=== PATIENT | female | born 1935 | race Caucasian/White ===

== ENCOUNTER 2017-06-08 17:10 | Inpatient (IN) | payer MEDICARE, BC, MEDICAID ==
[2017-06-08] MEDS ORDERED: Sodium Chloride 0.9% 10 ML Syringe FLUSH PRN (17:34)
[2017-06-08] MEDS ORDERED: LORazepam 2 MG/ML MDV IVPUSH ONE (17:38)
--- NOTE | 2017-06-08 17:39 | EDM.PDOC ---
ED HPI GENERAL MEDICAL PROBLEM - General Chief Complaint: Gastrointestinal Problem Stated Complaint: ASPIRATED Time Seen by Provider: 06/08/17 17:20 Source of Information: Reports: Patient History Limitations: Reports: No Limitations - History of Present Illness INITIAL COMMENTS - FREE TEXT/NARRATIVE: 81-year-old female presents for evaluation treatment of impacted food bolus. Patient is a resident [facility]. Reportedly around noon today she was eating a hamburger. She choked and since then she has been unable to swallow her secretions. She states that it feels as if something is stuck in her throat. Tried Mylanta but continued to have discomfort. Also attempted to give tramadol for anxiety. This was crushed. She has since vomited up the Mylanta and the tramadol. Onset: Today, Sudden - Related Data Allergies Allergy/AdvReac Type Severity Reaction Status Date / Time No Known Allergies Allergy Verified 06/08/17 17:40 Home Meds: Home Meds Acetaminophen [Tylenol] 325 mg PO Q4H PRN 06/14/14 [History] Aspirin [Sharita Chewable Aspirin] 81 mg PO DAILY 06/14/14 [History] Atenolol/Chlorthalidone [Atenolol-Chlorthalidone 50-25] 25 mg PO DAILY 06/14/14 [History] B2/Vit A,C & E/Lut/Zeaxanth/Mn [Icaps] 1 tab PO DAILY 06/14/14 [History] Budesonide [Pulmicort] 0.5 mg INH BID 06/14/14 [History] Calcium Carbonate [Tums] 2 tab PO Q4HR PRN 06/14/14 [History] ClonazePAM [KlonoPIN] 0.5 mg PO DAILY 06/14/14 [History] ClonazePAM [KlonoPIN] 1 mg PO BEDTIME 06/14/14 [History] Clopidogrel [Plavix] 75 mg PO DAILY 06/14/14 [History] Cyanocobalamin (Vitamin B12) [Vitamin B12] 1,000 mcg IM ASDIRECTED 06/14/14 [ History] Fenofibrate Nanocrystallized [Tricor] 145 mg PO DAILY 06/14/14 [History] Gabapentin [Neurontin] 100 mg PO BID 06/14/14 [History] Glimepiride [Amaryl] 1 mg PO DAILY 08/28/14 [History] Ibuprofen 400 mg PO TIDPC PRN 06/14/14 [History] Immodium 2 tab PO ASDIRECTED PRN 06/14/14 [History] Isosorbide Mononitrate [Imdur] 60 mg PO DAILY 06/14/14 [History] LORazepam [Ativan] 0.5 mg PO BID PRN 06/14/14 [History] Levothyroxine [Synthroid] 50 mcg PO DAILY 06/14/14 [History] Losartan [Cozaar] 25 mg PO DAILY 06/14/14 [History] Mirabegron [Myrbetriq] 25 mg PO DAILY 06/14/14 [History] Nitroglycerin 0.4 mg SL ASDIRECTED PRN 06/14/14 [History] Omeprazole 40 mg PO DAILY 06/14/14 [History] Oxygen 2 liter INH ASDIRECTED 06/14/14 [History] Polyethylene Glycol 3350 [MiraLAX] 17 gm PO DAILY PRN 06/14/14 [History] Potassium Chloride 20 meq PO BID 06/14/14 [History] Spironolactone [Aldactone] 25 mg PO DAILY 06/14/14 [History] atorvaSTATin [Lipitor] 10 mg PO DAILY 06/14/14 [History] metFORMIN [Glucophage] 500 mg PO BID 06/14/14 [History] traZODone 50 mg PO BEDTIME 06/14/14 [History] Carbamide Peroxide [Debrox 6.5% Otic Soln] 4 drop OT ONCALL 07/25/14 [History] Docusate Sodium 100 mg PO BID PRN 07/25/14 [History] Albuterol/Ipratropium [DuoNeb 3.0-0.5 MG/3 ML] 3 ml QID 11/14/14 [History] LORazepam [Ativan] 0.5 mg PO BID 09/20/15 [History] Paliperidone [Invega] 9 mg PO DAILY 09/20/15 [History] Vagisil Wash 1 appful TOP ASDIRECTED PRN 09/20/15 [History] Social & Family History - Tobacco Use Smoking Status *Q: Never Smoker Years of Tobacco use: 15 Used Tobacco, but Quit: Yes Month Tobacco Last Used: October 2004 Second Hand Smoke Exposure: No - Alcohol Use Days Per Week of Alcohol Use: 0 - Recreational Drug Use Recreational Drug Use: No ED ROS GENERAL - Review of Systems Review Of Systems: See Below HEENT: Reports: Other (reports feeling of something stuck in her throat; reports she cannot swallow her secretions) GI/Abdominal: Reports: Vomiting ED EXAM, GI/ABD - Physical Exam Exam: See Below Exam Limited By: No Limitations General Appearance: Alert, WD/WN, Anxious, Mild Distress Throat/Mouth: Normal Inspection, Normal Lips, No Airway Compromise, Other ( patient is unable to swallow any secretions) Respiratory/Chest: No Respiratory Distress, Lungs Clear, Normal Breath Sounds Cardiovascular: Normal Peripheral Pulses, Regular Rate, Rhythm, No Murmur Neurological: Alert, Normal Cognition Psychiatric: Normal Affect, Normal Mood Skin Exam: Warm, Dry EKG INTERPRETATION EKG Date: 06/08/17 Time: 17:45 Rhythm: NSR Rate (Beats/Min): 88 [place]: Normal P-Wave: Present QRS: Normal ST-T: Normal QT: Normal EKG Interpretation Comments: NSR at 88 bpm. No acute changes. Reviewed by myself and Dr. Cheung. Course - Vital Signs Last Recorded V/S: Last Vital Signs Temp 37.4 C 06/08/17 20:28 Pulse 82 06/08/17 19:59 Resp 20 06/08/17 20:28 BP 163/71 H 06/08/17 20:28 Pulse Ox 100 06/08/17 21:03 - Orders/Labs/Meds Orders: Active Orders 24 hr Category Date Time Status Patient Status [ADT] Routine ADT 06/08/17 19:41 Active Ambulate [RC] ASDIRECTED Care 06/08/17 19:41 Active Blood Glucose Check, Bedside [RC] BIDMEALS Care 06/08/17 19:41 Active Cardiac Monitoring [RC] . DIRECTED Care 06/08/17 19:41 Active Diabetes Education [RC] Click To Edit Care 06/08/17 19:45 Active EKG Documentation Completion [RC] STAT Care 06/08/17 17:34 Active Head of Bed Elevation [RC] CONTINUOUS Care 06/08/17 19:43 Active May Shower [RC] ASDIRECTED Care 06/08/17 19:41 Active Oxygen Therapy [RC] PRN Care 06/08/17 19:41 Active Peripheral IV Care [RC] . DIRECTED Care 06/08/17 17:34 Active Pulse Oximetry [RC] CONTINUOUS Care 06/08/17 19:44 Active RT Incentive Spirometry [RC] ASDIRECTED Care 06/08/17 19:41 Active Up ad Porsche [RC] ASDIRECTED Care 06/08/17 19:41 Active Up to Chair [RC] ASDIRECTED Care 06/08/17 19:41 Active Vital Signs [RC] PER UNIT ROUTINE Care 06/08/17 19:41 Active Clear Liquid Diet [DIET] Diet 06/09/17 Breakfast Active Chest 1V Frontal [CR] Stat Exams 06/08/17 17:34 Taken Ondansetron [Zofran] Med 06/08/17 19:41 Active 4 mg IVPUSH Q6H PRN Pantoprazole [ProTONIX IV] Med 06/08/17 20:00 Active 40 mg IVPUSH DAILY@2000 Sodium Chloride 0.9% [Normal Saline] 1,000 ml Med 06/08/17 19:45 Active IV ASDIRECTED Sodium Chloride 0.9% [Saline Flush] Med 06/08/17 17:34 Active 10 ml FLUSH ASDIRECTED PRN Glucose Management Sub Q Reflex [OM.PC] Routine Oth 06/08/17 19:44 Ordered Peripheral IV Insertion Adult [OM.PC] Routine Oth 06/08/17 17:34 Ordered Resuscitation Status Routine Resus Stat 06/08/17 19:41 Ordered Medication Orders Acetaminophen (Tylenol) 325 mg PO Q4H PRN PRN Reason: Pain Last Admin: 06/08/17 21:40 Dose: 325 mg Albuterol/Ipratropium (Duoneb 3.0-0.5 Mg/3 Ml) 3 ml NEB QIDRT [facility] Last Admin: 06/08/17 21:01 Dose: 3 ml Aspirin (Aspirin) 81 mg PO DAILY [facility] Budesonide (Pulmicort) 0.5 mg INH BIDRT [facility] Last Admin: 06/08/17 21:02 Dose: 0.5 mg Clonazepam (Klonopin) 1 mg PO BEDTIME [facility] Clopidogrel Bisulfate (Plavix) 75 mg PO DAILY [facility] Fenofibrate (Tricor) 145 mg PO DAILY [facility] Gabapentin (Neurontin) 100 mg PO BID [facility] Last Admin: 06/08/17 21:24 Dose: 100 mg Glimepiride (Amaryl) 1 mg PO DAILY@0700 [facility] Sodium Chloride (Normal Saline) 1,000 mls @ 40 mls/hr IV ASDIRECTED [facility] Last Admin: 06/08/17 22:05 Dose: 40 mls/hr Isosorbide Mononitrate (Imdur) 60 mg PO DAILY [facility] Levothyroxine Sodium (Synthroid) 50 mcg PO ACBREAKFAST [facility] Lorazepam (Ativan) 0.5 mg PO BID PRN PRN Reason: unknown Last Admin: 06/08/17 22:04 Dose: 0.5 mg Lorazepam (Ativan) 0.5 mg PO BID [facility] Losartan Potassium (Cozaar) 25 mg PO DAILY [facility] Metformin HCl (Glucophage) 500 mg PO BIDMEALS [facility] Nitroglycerin (Nitrostat) 0.4 mg SL ASDIRECTED PRN PRN Reason: Chest Pain Non-Formulary Medication (Clonazepam [Klonopin]) 0.5 mg PO DAILY [facility] Non-Formulary Medication (Mirabegron) 25 mg PO DAILY [facility] Non-Formulary Medication (Paliperidone [Invega]) 9 mg PO DAILY [facility] Non-Formulary Medication (Atenolol/Chlorthalidone 50/25) 1 tab PO DAILY [facility] Ondansetron HCl (Zofran) 4 mg IVPUSH Q6H PRN PRN Reason: Nausea/Vomiting Pantoprazole Sodium (Protonix Iv) 40 mg IVPUSH DAILY@1999 [facility] Last Admin: 06/08/17 21:24 Dose: 40 mg Potassium Chloride (Klor-Con M20) 20 meq PO BIDMEALS [facility] Last Admin: 06/08/17 21:24 Dose: 20 meq Sodium Chloride (Saline Flush) 10 ml FLUSH ASDIRECTED PRN PRN Reason: Keep Vein Open Spironolactone (Aldactone) 25 mg PO DAILY [facility] Trazodone HCl (Trazodone) 50 mg PO BEDTIME [facility] Last Admin: 06/08/17 21:24 Dose: 50 mg Labs: Laboratory Tests 06/08/17 06/08/17 06/08/17 Range/Units 17:30 17:30 17:30 WBC 7.44 (3.98-10.04) K/mm3 RBC 4.04 (3.98-5.22) M/mm3 Hgb 11.2 (11.2-15.7) gm/L Hct 35.7 (34.1-44.9) % MCV 88.4 (79.4-94.8) fl MCH 27.7 (25.6-32.2) pg MCHC 31.4 L (32.2-35.5) g/dl RDW Std Deviation 48.7 H (36.4-46.3) fL Plt Count 140 L (182-369) K/mm3 MPV 11.2 (9.4-12.3) fl Neut % (Auto) 72.5 H (34.0-71.1) % Lymph % (Auto) 16.9 L (19.3-51.7) % [place] % (Auto) 9.3 (4.7-12.5) % Eos % (Auto) 0.9 (0.7-5.8) Baso % (Auto) 0.1 (0.1-1.2) % Neut # (Auto) 5.39 (1.56-6.13) K/mm3 Lymph # (Auto) 1.26 (1.18-3.74) K/mm3 [place] # (Auto) 0.69 H (0.24-0.36) K/mm3 Eos # (Auto) 0.07 (0.04-0.36) K/mm3 Baso # (Auto) 0.01 (0.01-0.08) K/mm3 PT 10.9 (8.0-13.0) SECONDS INR 1.00 APTT 27 (22-36) SECONDS Sodium 140 (136-145) mEq/L Potassium 4.0 (3.5-5.1) mEq/L Chloride 102 (98-107) mEq/L Carbon Dioxide 30 (21-32) mEq/L Anion Gap 12.0 (5-15) BUN 17 (7-18) mg/dL Creatinine 1.0 (0.55-1.02) mg/dL Est Cr Clr Drug Dosing 43.63 mL/min Estimated GFR (MDRD) 53 (>60) mL/min BUN/Creatinine Ratio 17.0 (14-18) Glucose 105 (83-115) mg/dL Calcium 10.1 (8.5-10.1) mg/dL Total Bilirubin 0.5 (0.2-1.0) mg/dL AST 19 (15-37) U/L ALT 17 (14-59) U/L Alkaline Phosphatase 36 L (46-116) U/L Total Protein 7.5 (6.4-8.2) g/dl Albumin 4.1 (3.4-5.0) g/dl Globulin 3.4 gm/dL Albumin/Globulin Ratio 1.2 (1-2) Meds: Medications Generic Name Dose Route Start Last Admin Trade Name Freq PRN Reason Stop Dose Admin Acetaminophen 325 mg 06/08/17 19:46 06/08/17 21:40 Tylenol PO 325 mg Q4H PRN Administration Pain Albuterol/Ipratropium 3 ml 06/08/17 21:00 06/08/17 21:01 Duoneb 3.0-0.5 Mg/3 Ml NEB 3 ml QIDRT KATHLEEN Administration Aspirin 81 mg 06/09/17 09:00 Aspirin PO DAILY [facility] Budesonide 0.5 mg 06/08/17 21:00 06/08/17 21:02 Pulmicort INH 0.5 mg BIDRT KATHLEEN Administration Clonazepam 1 mg 06/08/17 21:00 Klonopin PO BEDTIME KATHLEEN Clopidogrel Bisulfate 75 mg 06/09/17 09:00 Plavix PO DAILY [facility] Fenofibrate 145 mg 06/09/17 09:00 Tricor PO DAILY [facility] Gabapentin 100 mg 06/08/17 21:00 06/08/17 21:24 Neurontin PO 100 mg BID KATHLEEN Administration Glimepiride 1 mg 06/09/17 07:00 Amaryl PO DAILY@0700 [facility] Sodium Chloride 1,000 mls @ 40 mls/hr 06/08/17 19:45 06/08/17 22:05 Normal Saline IV 40 mls/hr ASDIRECTED KATHLEEN Administration Isosorbide Mononitrate 60 mg 06/09/17 09:00 Imdur PO DAILY [facility] Levothyroxine Sodium 50 mcg 06/09/17 06:00 Synthroid PO ACBREAKFAST [facility] Lorazepam 0.5 mg 06/08/17 19:46 06/08/17 22:04 Ativan PO 0.5 mg BID PRN Administration unknown Lorazepam 0.5 mg 06/08/17 21:00 Ativan PO BID [facility] Losartan Potassium 25 mg 06/09/17 09:00 Cozaar PO DAILY [facility] Metformin HCl 500 mg 06/09/17 07:00 Glucophage PO BIDMEALS [facility] Nitroglycerin 0.4 mg 06/08/17 19:46 Nitrostat SL ASDIRECTED PRN Chest Pain Non-Formulary Medication 0.5 mg 06/09/17 09:00 Clonazepam [Klonopin] PO DAILY [facility] Non-Formulary Medication 25 mg 06/09/17 09:00 Mirabegron PO DAILY [facility]LEEN Non-Formulary Medication 9 mg 06/09/17 09:00 Paliperidone [Invega] PO DAILY [facility] Non-Formulary Medication 1 tab 06/09/17 09:00 Atenolol/Chlorthalidone 50/25 PO DAILY [facility] Ondansetron HCl 4 mg 06/08/17 19:41 Zofran IVPUSH Q6H PRN Nausea/Vomiting Pantoprazole Sodium 40 mg 06/08/17 20:00 06/08/17 21:24 Protonix Iv IVPUSH 40 mg DAILY@1999 [facility] Administration Potassium Chloride 20 meq 06/08/17 21:00 06/08/17 21:24 Klor-Con M20 PO 20 meq BIDMEALS [facility] Administration Sodium Chloride 10 ml 06/08/17 17:34 Saline Flush FLUSH ASDIRECTED PRN Keep Vein Open Spironolactone 25 mg 06/09/17 09:00 Aldactone PO DAILY [facility] Trazodone HCl 50 mg 06/08/17 21:00 06/08/17 21:24 Trazodone PO 50 mg BEDTIME [facility] Administration Discontinued Medications Generic Name Dose Route Start Last Admin Trade Name Freq PRN Reason Stop Dose Admin Dexamethasone Confirm 06/08/17 19:55 Dexamethasone Administered 06/08/17 19:56 Dose 12 mg .ROUTE .STK-MED ONE Fentanyl Confirm 06/08/17 18:24 Sublimaze Administered 06/08/17 18:25 Dose 100 mcg .ROUTE .STK-MED ONE Lorazepam 0.5 mg 06/08/17 17:38 06/08/17 19:14 Ativan IVPUSH 06/08/17 17:39 Not Given ONETIME ONE Midazolam HCl Confirm 06/08/17 18:24 Versed 1 Mg/Ml Administered 06/08/17 18:25 Dose 2 mg .ROUTE .STK-MED ONE Non-Formulary Medication 2 liter 06/08/17 20:00 Oxygen INH ASDIRECTED [facility] Propofol Confirm 06/08/17 18:24 Diprivan 20 Ml Administered 06/08/17 18:25 Dose 200 mg .ROUTE .STK-MED ONE - Radiology Interpretation Free Text/Narrative:: chest xray 1 view shows increased hazziness to the right lower lung; formal radiology reading pending. - Re-Assessments/Exams Free Text/Narrative Re-Assessment/Exam: 06/08/17 17:51 Dr. Brandt has presented to the ER to see another patient. I informed him of the impacted food bolus. Plan is to take her to the OR now. We will hold any glucagon and Ativan at this time. I ordered labs, EKG and chest x-ray in preparation for the OR. Departure - Departure Time of Disposition: 18:00 Disposition: Refer to Observation Condition: Fair Clinical Impression: Esophageal obstruction due to food impaction - Discharge Information - My Orders Last 24 Hours: My Active Orders 06/08/17 17:34 EKG Documentation Completion [RC] STAT Peripheral IV Care [RC] . DIRECTED Chest 1V Frontal [CR] Stat Sodium Chloride 0.9% [Saline Flush] 10 ml FLUSH ASDIRECTED PRN Peripheral IV Insertion Adult [OM.PC] Routine - Assessment/Plan Last 24 Hours: My Active Orders 06/08/17 17:34 EKG Documentation Completion [RC] STAT Peripheral IV Care [RC] . DIRECTED Chest 1V Frontal [CR] Stat Sodium Chloride 0.9% [Saline Flush] 10 ml FLUSH ASDIRECTED PRN Peripheral IV Insertion Adult [OM.PC] Routine
[2017-06-08] MEDS ORDERED: Propofol 200 MG/20 ML SDV ONE (18:24)
[2017-06-08] MEDS ORDERED: Midazolam 1 MG/ML 2 ML SDV ONE (18:24)
[2017-06-08] MEDS ORDERED: fentaNYL 100 MCG/2 ML SDV ONE (18:24)
[2017-06-08] MEDS ORDERED: Ondansetron 4 MG/2 ML SDV IVPUSH PRN (19:41)
[2017-06-08] MEDS ORDERED: Sodium Chloride 0.9% 1,000 ML IV SCH (19:45)
[2017-06-08] MEDS ORDERED: LORazepam 1 MG Tab PO PRN (19:46)
[2017-06-08] MEDS ORDERED: Nitroglycerin 0.4 MG Tab.SL SL PRN (19:46)
[2017-06-08] MEDS ORDERED: Acetaminophen 325 MG Tab PO PRN (19:46)
[2017-06-08] MEDS ORDERED: Dexamethasone 4 MG/ML SDV ONE (19:55)
--- NOTE | 2017-06-08 19:56 | PCM.OPNOTE ---
- General Post-Op/Procedure Note Date of Surgery/Procedure: 06/08/17 Operative Procedure(s): Esophagogastroduodenoscopy with esophageal meat disimpaction Findings: Distal esophagus. Food hamburger and bun. No stricture seen. No mass lesions. No chronic endoscopic esophageal changes. The esophagus was somewhat dilated Pre Op Diagnosis: Esophageal meat impaction Post-Op Diagnosis: Same Anesthesia Technique: General ET Tube Primary Surgeon: Reji Brandt Pathology: None EBL in mLs: 0 Complications: None Condition: Good Free Text/Narrative:: After adequate general endotracheal tube anesthesia was obtained with monitoring the patient was kept in the supine position with the head of the bed elevated. A lubricated upper endoscope was inserted into the esophagus and advanced under direct vision. I immediately saw retained saliva and tight meat impacted upon the GE junction. After using the snare to break up the meat and food as well as using the forceps to break up the food along with copious amounts of irrigation I was able to finally enter the stomach. There was food material in the stomach as well. The scope was advanced into the duodenum and there were no inflammatory changes or peptic changes seen in this area. The antrum was unremarkable. In the retroflexed view there was obvious food in the body of the stomach but no hiatal hernia. The scope was then withdrawn to the body of the esophagus where I continued to break up and then irrigate food particulate material into the stomach until the esophagus was completely clear. Photographs were taken throughout the procedure for the patient and for the record. There were no procedural complications.
--- NOTE | 2017-06-08 19:58 | PCM.POSTAN ---
POST ANESTHESIA ASSESSMENT - MENTAL STATUS Mental Status: Alert, Oriented - VITAL SIGNS Pulse Rate: 82 SaO2: 98 Resp Rate: 15 Blood Pressure: 143/76 Temperature: 37.3 C - RESPIRATORY Respiratory Status: Respiratory Rate WNL, Airway Patent, O2 Saturation Stable, Supplemental Oxygen - CARDIOVASCULAR CV Status: Pulse Rate WNL, Blood Pressure Stable - GASTROINTESTINAL GI Status: No Symptoms - PAIN Pain Score: 0 - POST OP HYDRATION Hydration Status: Adequate & Stable
--- NOTE | 2017-06-08 19:59 | PCM.PREANE ---
Preanesthetic Assessment - Anesthesia/Transfusion/Family Hx Anesthesia History: Prior Anesthesia Without Reaction Family History of Anesthesia Reaction: No Transfusion History: No Prior Transfusion(s) - Review of Systems General: Malaise Pulmonary: Shortness of Breath Cardiovascular: No Symptoms Gastrointestinal: Nausea, Vomiting Neurological: Weakness Other: Reports: Diabetes - Physical Assessment NPO Status Date: 06/08/17 NPO Status Time: 12:05 Pulse: 82 O2 Sat by Pulse Oximetry: 98 Respiratory Rate: 15 Blood Pressure: 143/76 Temperature: 37.3 C Vital Signs: Last Vital Signs Temp 37.3 C 06/08/17 19:57 Pulse 82 06/08/17 19:57 Resp 15 06/08/17 19:57 BP 143/76 H 06/08/17 19:57 Pulse Ox 98 06/08/17 19:57 Height: 1.7 m Weight: 74.298 kg ASA Class: 3E Mental Status: Alert & Oriented x3 Airway Class: Mallampati = 2 Dentition: Reports: Dentures Thyro-Mental Finger Breadths: 2 Mouth Opening Finger Breadths: 2 ROM/Head Extension: Limited/Partial Lungs: Clear to Auscultation, Normal Respiratory Effort Cardiovascular: Regular Rate, Regular Rhythm - Lab Values: Laboratory Last Values WBC 7.44 K/mm3 (3.98-10.04) 06/08/17 17:30 RBC 4.04 M/mm3 (3.98-5.22) 06/08/17 17:30 Hgb 11.2 gm/L (11.2-15.7) 06/08/17 17:30 Hct 35.7 % (34.1-44.9) 06/08/17 17:30 MCV 88.4 fl (79.4-94.8) 06/08/17 17:30 MCH 27.7 pg (25.6-32.2) 06/08/17 17:30 MCHC 31.4 g/dl (32.2-35.5) L 06/08/17 17:30 RDW Std Deviation 48.7 fL (36.4-46.3) H 06/08/17 17:30 Plt Count 140 K/mm3 (182-369) L 06/08/17 17:30 MPV 11.2 fl (9.4-12.3) 06/08/17 17:30 Neut % (Auto) 72.5 % (34.0-71.1) H 06/08/17 17:30 Lymph % (Auto) 16.9 % (19.3-51.7) L 06/08/17 17:30 [place] % (Auto) 9.3 % (4.7-12.5) 06/08/17 17:30 Eos % (Auto) 0.9 (0.7-5.8) 06/08/17 17:30 Baso % (Auto) 0.1 % (0.1-1.2) 06/08/17 17:30 Neut # (Auto) 5.39 K/mm3 (1.56-6.13) 06/08/17 17:30 Lymph # (Auto) 1.26 K/mm3 (1.18-3.74) 06/08/17 17:30 [place] # (Auto) 0.69 K/mm3 (0.24-0.36) H 06/08/17 17:30 Eos # (Auto) 0.07 K/mm3 (0.04-0.36) 06/08/17 17:30 Baso # (Auto) 0.01 K/mm3 (0.01-0.08) 06/08/17 17:30 PT 10.9 SECONDS (8.0-13.0) 06/08/17 17:30 INR 1.00 06/08/17 17:30 APTT 27 SECONDS (22-36) 06/08/17 17:30 Sodium 140 mEq/L (136-145) 06/08/17 17:30 Potassium 4.0 mEq/L (3.5-5.1) 06/08/17 17:30 Chloride 102 mEq/L (98-107) 06/08/17 17:30 Carbon Dioxide 30 mEq/L (21-32) 06/08/17 17:30 Anion Gap 12.0 (5-15) 06/08/17 17:30 BUN 17 mg/dL (7-18) 06/08/17 17:30 Creatinine 1.0 mg/dL (0.55-1.02) 06/08/17 17:30 Est Cr Clr Drug Dosing 43.63 mL/min 06/08/17 17:30 Estimated GFR (MDRD) 53 mL/min (>60) 06/08/17 17:30 BUN/Creatinine Ratio 17.0 (14-18) 06/08/17 17:30 Glucose 105 mg/dL (83-115) 06/08/17 17:30 Calcium 10.1 mg/dL (8.5-10.1) 06/08/17 17:30 Total Bilirubin 0.5 mg/dL (0.2-1.0) 06/08/17 17:30 AST 19 U/L (15-37) 06/08/17 17:30 ALT 17 U/L (14-59) 06/08/17 17:30 Alkaline Phosphatase 36 U/L (46-116) L 06/08/17 17:30 Total Protein 7.5 g/dl (6.4-8.2) 06/08/17 17:30 Albumin 4.1 g/dl (3.4-5.0) 06/08/17 17:30 Globulin 3.4 gm/dL 06/08/17 17:30 Albumin/Globulin Ratio 1.2 (1-2) 06/08/17 17:30 - Allergies Allergies/Adverse Reactions: Allergies Allergy/AdvReac Type Severity Reaction Status Date / Time No Known Allergies Allergy Verified 06/08/17 17:40 - Blood Blood Available: No Product(s) Available: None - Anesthesia Plan Pre-Op Medication Ordered: Beta Dusty Beta Dusty: Metoprolol Med Last Dose Date: 06/08/17 Med Last Dose Time: 09:00 - Acknowledgements Anesthesia Type Planned: General Anesthesia Pt an Appropriate Candidate for the Planned Anesthesia: Yes Alternatives and Risks of Anesthesia Discussed w Pt/Guardian: Yes Pt/Guardian Understands and Agrees with Anesthesia Plan: Yes PreAnesthesia Questionnaire HEENT History: Reports: Impaired Vision, Other (See Below) Other HEENT History: wears corrective lenses, dry eye syndrome Cardiovascular History: Reports: CAD, Hypertension, Other (See Below) Respiratory History: Reports: COPD, Other (See Below) Other Respiratory History: chronic O2 use Gastrointestinal History: Reports: Chronic Constipation, GERD Genitourinary History: Reports: Urinary Incontinence ONCOLOGY PHYSICIAN History: Reports: Musculoskeletal History: Reports: Back Pain, Chronic, Osteoarthritis Neurological History: Reports: CVA, Other (See Below) Other Neuro History: unspecified polyneuropathy, dyskinesia, drug induced dyskinesia Psychiatric History: Reports: Anxiety, Dementia, Depression Endocrine/Metabolic History: Reports: Diabetes, Type II Dermatologic History: Reports: Other (See Below) Other Dermatologic History: benign lipomatous neoplasm of skin - Past Surgical History Neurological Surgical History: Reports: None - SUBSTANCE USE Smoking Status *Q: Never Smoker Tobacco Use Within Last Twelve Months: No Second Hand Smoke Exposure: No Days Per Week of Alcohol Use: 0 Recreational Drug Use History: No - HOME MEDS Home Medications: Home Meds Acetaminophen [Tylenol] 325 mg PO Q4H PRN 06/14/14 [History] Aspirin [Sharita Chewable Aspirin] 81 mg PO DAILY 06/14/14 [History] Atenolol/Chlorthalidone [Atenolol-Chlorthalidone 50-25] 25 mg PO DAILY 06/14/14 [History] B2/Vit A,C & E/Lut/Zeaxanth/Mn [Icaps] 1 tab PO DAILY 06/14/14 [History] Budesonide [Pulmicort] 0.5 mg INH BID 06/14/14 [History] Calcium Carbonate [Tums] 2 tab PO Q4HR PRN 06/14/14 [History] ClonazePAM [KlonoPIN] 0.5 mg PO DAILY 06/14/14 [History] ClonazePAM [KlonoPIN] 1 mg PO BEDTIME 06/14/14 [History] Clopidogrel [Plavix] 75 mg PO DAILY 06/14/14 [History] Cyanocobalamin (Vitamin B12) [Vitamin B12] 1,000 mcg IM ASDIRECTED 06/14/14 [ History] Fenofibrate Nanocrystallized [Tricor] 145 mg PO DAILY 06/14/14 [History] Gabapentin [Neurontin] 100 mg PO BID 06/14/14 [History] Glimepiride [Amaryl] 1 mg PO DAILY 06/14/14 [History] Ibuprofen 400 mg PO TIDPC PRN 06/14/14 [History] Immodium 2 tab PO ASDIRECTED PRN 06/14/14 [History] Isosorbide Mononitrate [Imdur] 60 mg PO DAILY 06/14/14 [History] LORazepam [Ativan] 0.5 mg PO BID PRN 06/14/14 [History] Levothyroxine [Synthroid] 50 mcg PO DAILY 06/14/14 [History] Losartan [Cozaar] 25 mg PO DAILY 06/14/14 [History] Mirabegron [Myrbetriq] 25 mg PO DAILY 06/14/14 [History] Nitroglycerin 0.4 mg SL ASDIRECTED PRN 06/14/14 [History] Omeprazole 40 mg PO DAILY 06/14/14 [History] Oxygen 2 liter INH ASDIRECTED 06/14/14 [History] Polyethylene Glycol 3350 [MiraLAX] 17 gm PO DAILY PRN 06/14/14 [History] Potassium Chloride 20 meq PO BID 06/14/14 [History] Spironolactone [Aldactone] 25 mg PO DAILY 06/14/14 [History] atorvaSTATin [Lipitor] 10 mg PO DAILY 06/14/14 [History] metFORMIN [Glucophage] 500 mg PO BID 06/14/14 [History] traZODone 50 mg PO BEDTIME 06/14/14 [History] Carbamide Peroxide [Debrox 6.5% Otic Soln] 4 drop OT ONCALL 07/25/14 [History] Docusate Sodium 100 mg PO BID PRN 07/25/14 [History] Albuterol/Ipratropium [DuoNeb 3.0-0.5 MG/3 ML] 3 ml QID 11/14/14 [History] LORazepam [Ativan] 0.5 mg PO BID 09/20/15 [History] Paliperidone [Invega] 9 mg PO DAILY 09/20/15 [History] Vagisil Wash 09/20/15 [History] - CURRENT (IN HOUSE) MEDS Current Meds: Current Medications Acetaminophen (Tylenol) 325 mg PO Q4H PRN PRN Reason: Pain Albuterol/Ipratropium (Duoneb 3.0-0.5 Mg/3 Ml) 3 ml NEB QID [facility] Aspirin (Aspirin) 81 mg PO DAILY [facility] Budesonide (Pulmicort) 0.5 mg INH BID [facility] Clonazepam (Klonopin) 1 mg PO BEDTIME [facility] Clopidogrel Bisulfate (Plavix) 75 mg PO DAILY [facility] Fenofibrate (Tricor) 145 mg PO DAILY [facility] Gabapentin (Neurontin) 100 mg PO BID [facility] Sodium Chloride (Normal Saline) 1,000 mls @ 40 mls/hr IV ASDIRECTED [facility] Isosorbide Mononitrate (Imdur) 60 mg PO DAILY [facility] Levothyroxine Sodium (Synthroid) 50 mcg PO DAILY [facility] Lorazepam (Ativan) 0.5 mg PO BID PRN PRN Reason: unknown Lorazepam (Ativan) 0.5 mg PO BID [facility] Metformin HCl (Glucophage) 500 mg PO BID [facility] Nitroglycerin (Nitrostat) 0.4 mg SL ASDIRECTED PRN PRN Reason: Chest Pain Non-Formulary Medication (Oxygen) 2 liter INH ASDIRECTED [facility] Non-Formulary Medication (Potassium Chloride [Potassium Chloride]) 20 meq PO BID [facility] Non-Formulary Medication (Atenolol/Chlorthalidone [Atenolol-Chlorthalidone 50-25 ]) 25 mg PO DAILY [facility] Non-Formulary Medication (Clonazepam [Klonopin]) 0.5 mg PO DAILY [facility] Non-Formulary Medication (Glimepiride) 1 mg PO DAILY [facility] Non-Formulary Medication (Losartan) 25 mg PO DAILY [facility] Non-Formulary Medication (Mirabegron) 25 mg PO DAILY [facility] Non-Formulary Medication (Paliperidone [Invega]) 9 mg PO DAILY [facility] Ondansetron HCl (Zofran) 4 mg IVPUSH Q6H PRN PRN Reason: Nausea/Vomiting Pantoprazole Sodium (Protonix Iv) 40 mg IVPUSH DAILY@2000 [facility] Sodium Chloride (Saline Flush) 10 ml FLUSH ASDIRECTED PRN PRN Reason: Keep Vein Open Spironolactone (Aldactone) 25 mg PO DAILY [facility] Trazodone HCl (Trazodone) 50 mg PO BEDTIME [facility] Discontinued Medications Dexamethasone (Dexamethasone) Confirm Administered Dose 12 mg .ROUTE .STK-MED ONE Stop: 06/08/17 19:56 Fentanyl (Sublimaze) Confirm Administered Dose 100 mcg .ROUTE .STK-MED ONE Stop: 06/08/17 18:25 Lorazepam (Ativan) 0.5 mg IVPUSH ONETIME ONE Stop: 06/08/17 17:39 Last Admin: 06/08/17 19:14 Dose: Not Given Midazolam HCl (Versed 1 Mg/Ml) Confirm Administered Dose 2 mg .ROUTE .STK-MED ONE Stop: 06/08/17 18:25 Propofol (Diprivan 20 Ml) Confirm Administered Dose 200 mg .ROUTE .STK-MED ONE Stop: 06/08/17 18:25
[2017-06-08] MEDS ORDERED: OXYGEN INH SCH (20:00)
[2017-06-08] MEDS ORDERED: Pantoprazole 40 MG Vial IVPUSH SCH (20:00)
[2017-06-08] MEDS ORDERED: ClonazePAM 1 MG Tab PO SCH (21:00)
[2017-06-08] MEDS ORDERED: traZODone 50 MG Tab PO SCH (21:00)
[2017-06-08] MEDS: Albuterol/Ipratropium 3.0-0.5 MG/3 ML Neb Soln NEB SCH (21:01)
[2017-06-08] MEDS: Budesonide 0.5 MG/2 ML Neb Susp INH SCH (21:02)
[2017-06-08] MEDS: Gabapentin 100 MG Cap PO SCH (21:24)
[2017-06-08] MEDS: Potassium Chloride 20 MEQ Tab.ER PO SCH (21:24)
[2017-06-09] MEDS ORDERED: Levothyroxine 50 MCG Tab PO SCH (06:00)
[2017-06-09] MEDS: Albuterol/Ipratropium 3.0-0.5 MG/3 ML Neb Soln NEB SCH ×2 (06:31→09:01)
[2017-06-09] MEDS: Budesonide 0.5 MG/2 ML Neb Susp INH SCH (06:31)
[2017-06-09] MEDS ORDERED: metFORMIN 500 MG Tab PO SCH (07:00)
[2017-06-09] MEDS ORDERED: Glimepiride 2 MG Tab PO SCH (07:00)
--- NOTE | 2017-06-09 07:39 | PCM.DCSUM1 ---
Discharge Summary - Hospital Course Free Text/Narrative:: Patient was having respiratory insufficiency secondary to esophageal meat impaction causing distal esophageal obstruction. She was urgently taken to the endoscopy suite for esophagoscopy and meat disimpaction which was successfully performed without complication. The procedure was quite lengthy and because of the trauma to her the distal esophagus and oropharynx I admitted her in the ICU to observe her airway for potential swelling. Overnight she did well tolerating liquids easily. She had no throat discomfort. Her respiratory rate normalized. She satisfied all discharge criteria. Brief History: 6 hours of progressive respiratory insufficiency secondary to esophageal meat obstruction - Discharge Data Discharge Date: 06/09/17 Discharge Disposition: Home, Self-Care 01 Condition: Good - Discharge Diagnosis/Problem(s) (1) Esophageal obstruction due to food impaction SNOMED Code(s): 130274818 ICD Code: K22.2 - ESOPHAGEAL OBSTRUCTION; T18.128A - FOOD IN ESOPHAGUS CAUSING OTHER INJURY, INITIAL ENCOUNTER Status: Resolved Priority: High Current Visit: Yes - Patient Summary/Data Operative Procedure(s) Performed: Esophagogastroduodenoscopy with esophageal meat disimpaction Complications: None Labs Pending at D/C: None Planned Operative Procedure(s) after DC: None Hospital Course: See above. - Patient Instructions Diet: Full Liquid Diet (For 3 days. ), GI Soft/Low Residue/Low Fiber (3 days after a full liquid diet. Then if tolerating all diets then can advance to her regular routine diet.) Activity: As Tolerated, Rest and Relax Today Driving: Do Not Drive Showering/Bathing: May Shower Notify Provider of: Fever, Increased Pain - Discharge Plan Home Medications: Home Meds Immodium 2 tab PO ASDIRECTED PRN 06/14/14 [History] Oxygen 2 liter INH ASDIRECTED 06/14/14 [History] RX: Acetaminophen [Tylenol] 325 mg PO Q4H PRN 06/14/14 [History] RX: Aspirin [Sharita Chewable Aspirin] 81 mg PO DAILY 06/14/14 [History] RX: Atenolol/Chlorthalidone [Atenolol-Chlorthalidone 50-25] 25 mg PO DAILY 06/14 [History] RX: B2/Vit A,C & E/Lut/Zeaxanth/Mn [Icaps] 1 tab PO DAILY 06/14/14 [History] RX: Budesonide [Pulmicort] 0.5 mg INH BID 06/14/14 [History] RX: Calcium Carbonate [Tums] 2 tab PO Q4HR PRN 06/14/14 [History] RX: ClonazePAM [KlonoPIN] 0.5 mg PO DAILY 06/14/14 [History] RX: ClonazePAM [KlonoPIN] 1 mg PO BEDTIME 06/14/14 [History] RX: Clopidogrel [Plavix] 75 mg PO DAILY 06/14/14 [History] RX: Cyanocobalamin (Vitamin B12) [Vitamin B12] 1,000 mcg IM ASDIRECTED 06/14/14 [History] RX: Fenofibrate Nanocrystallized [Tricor] 145 mg PO DAILY 06/14/14 [History] RX: Gabapentin [Neurontin] 100 mg PO BID 06/14/14 [History] RX: Glimepiride [Amaryl] 1 mg PO DAILY 06/14/14 [History] RX: Ibuprofen 400 mg PO TIDPC PRN 06/14/14 [History] RX: Isosorbide Mononitrate [Imdur] 60 mg PO DAILY 06/14/14 [History] RX: LORazepam [Ativan] 0.5 mg PO BID PRN 06/14/14 [History] RX: Levothyroxine [Synthroid] 50 mcg PO DAILY 06/14/14 [History] RX: Losartan [Cozaar] 25 mg PO DAILY 06/14/14 [History] RX: Mirabegron [Myrbetriq] 25 mg PO DAILY 06/14/14 [History] RX: Nitroglycerin 0.4 mg SL ASDIRECTED PRN 06/14/14 [History] RX: Omeprazole 40 mg PO DAILY 06/14/14 [History] RX: Polyethylene Glycol 3350 [MiraLAX] 17 gm PO DAILY PRN 06/14/14 [History] RX: Potassium Chloride 20 meq PO BID 06/14/14 [History] RX: Spironolactone [Aldactone] 25 mg PO DAILY 06/14/14 [History] RX: atorvaSTATin [Lipitor] 10 mg PO DAILY 06/14/14 [History] RX: metFORMIN [Glucophage] 500 mg PO BID 06/14/14 [History] RX: traZODone 50 mg PO BEDTIME 08/28/14 [History] RX: Carbamide Peroxide [Debrox 6.5% Otic Soln] 4 drop OT ONCALL 07/25/14 [ History] RX: Docusate Sodium 100 mg PO BID PRN 07/25/14 [History] RX: Albuterol/Ipratropium [DuoNeb 3.0-0.5 MG/3 ML] 3 ml QID 11/14/14 [History] RX: LORazepam [Ativan] 0.5 mg PO BID 09/20/15 [History] RX: Paliperidone [Invega] 9 mg PO DAILY 09/20/15 [History] Vagisil Wash 1 appful TOP ASDIRECTED PRN 09/20/15 [History] Forms: ED Department Discharge Referrals: Juan Carlos Daniels MD [Primary Care Provider] - - Discharge Summary/Plan Comment DC Time >30 min.: No Discharge Summary/Plan Comment: Clear liquid diet for 3 days followed by a soft diet for 3 days then she can resume her regular diet. - Patient Data Vitals - Most Recent: Last Vital Signs Temp 36.7 C 06/09/17 04:00 Pulse 70 06/09/17 04:00 Resp 24 H 06/09/17 04:00 BP 138/76 06/09/17 04:00 Pulse Ox 97 06/09/17 06:34 Weight - Most Recent: 75.523 kg I&O - Last 24 hours: Intake & Output 06/08/17 06/09/17 06/09/17 22:59 06:59 14:59 Intake Total 100 307 Output Total 275 200 300 Balance -175 107 -300 Lab Results - Last 24 hrs: Laboratory Results - last 24 hr 06/08/17 06/09/17 Range/Units 20:07 00:10 POC Glucose 89 (83-110) mg/dL MRSA (PCR) Positive H Med Orders - Current: Current Medications Acetaminophen (Tylenol) 325 mg PO Q4H PRN PRN Reason: Pain Last Admin: 06/08/17 21:40 Dose: 325 mg Albuterol/Ipratropium (Duoneb 3.0-0.5 Mg/3 Ml) 3 ml NEB QIDRT [facility] Last Admin: 06/09/17 06:31 Dose: 3 ml Aspirin (Aspirin) 81 mg PO DAILY [facility] Budesonide (Pulmicort) 0.5 mg INH BIDRT [facility] Last Admin: 06/09/17 06:31 Dose: 0.5 mg Clonazepam (Klonopin) 1 mg PO BEDTIME [facility] Last Admin: 06/09/17 07:22 Dose: Not Given Clonazepam (Klonopin) 0.5 mg PO DAILY [facility] Clopidogrel Bisulfate (Plavix) 75 mg PO DAILY [facility] Fenofibrate (Tricor) 145 mg PO DAILY [facility] Gabapentin (Neurontin) 100 mg PO BID [facility] Last Admin: 06/08/17 21:24 Dose: 100 mg Glimepiride (Amaryl) 1 mg PO DAILY@0700 [facility] Sodium Chloride (Normal Saline) 1,000 mls @ 40 mls/hr IV ASDIRECTED [facility] Last Admin: 06/08/17 22:05 Dose: 40 mls/hr Isosorbide Mononitrate (Imdur) 60 mg PO DAILY [facility] Levothyroxine Sodium (Synthroid) 50 mcg PO ACBREAKFAST [facility] Last Admin: 06/09/17 07:22 Dose: 50 mcg Lorazepam (Ativan) 0.5 mg PO BID PRN PRN Reason: unknown Last Admin: 06/08/17 22:04 Dose: 0.5 mg Lorazepam (Ativan) 0.5 mg PO BID [facility] Losartan Potassium (Cozaar) 25 mg PO DAILY [facility] Metformin HCl (Glucophage) 500 mg PO BIDMEALS [facility] Nitroglycerin (Nitrostat) 0.4 mg SL ASDIRECTED PRN PRN Reason: Chest Pain Ondansetron HCl (Zofran) 4 mg IVPUSH Q6H PRN PRN Reason: Nausea/Vomiting Pantoprazole Sodium (Protonix Iv) 40 mg IVPUSH DAILY@1999 [facility] Last Admin: 06/08/17 21:24 Dose: 40 mg Mybetriq (Mirabegron (25 Mg)) 0 each PO DAILY [facility] Paliperidone [Invega (] 9 Mg) 0 each PO DAILY [facility] Atenolol/Chlorthalidone 50/25 Tablet 0 each PO DAILY [facility] Potassium Chloride (Klor-Con M20) 20 meq PO BIDMEALS [facility] Last Admin: 06/08/17 21:24 Dose: 20 meq Sodium Chloride (Saline Flush) 10 ml FLUSH ASDIRECTED PRN PRN Reason: Keep Vein Open Spironolactone (Aldactone) 25 mg PO DAILY [facility] Trazodone HCl (Trazodone) 50 mg PO BEDTIME [facility] Last Admin: 06/08/17 21:24 Dose: 50 mg Discontinued Medications Dexamethasone (Dexamethasone) Confirm Administered Dose 12 mg .ROUTE .STK-MED ONE Stop: 06/08/17 19:56 Fentanyl (Sublimaze) Confirm Administered Dose 100 mcg .ROUTE .STK-MED ONE Stop: 06/08/17 18:25 Lorazepam (Ativan) 0.5 mg IVPUSH ONETIME ONE Stop: 06/08/17 17:39 Last Admin: 06/08/17 19:14 Dose: Not Given Midazolam HCl (Versed 1 Mg/Ml) Confirm Administered Dose 2 mg .ROUTE .STK-MED ONE Stop: 06/08/17 18:25 Non-Formulary Medication (Oxygen) 2 liter INH ASDIRECTED [facility] Propofol (Diprivan 20 Ml) Confirm Administered Dose 200 mg .ROUTE .STK-MED ONE Stop: 06/08/17 18:25 *Q Meaningful Use (DIS) - VTE *Q VTE Criteria *Q: - Stroke *Q Stroke Criteria *Q: - AMI *Q AMI Criteria *Q:
[2017-06-09 08:21] VITALS: BP 132/71
[2017-06-09] MEDS: Potassium Chloride 20 MEQ Tab.ER PO SCH (08:38)
[2017-06-09] MEDS: LORazepam 0.5 MG Tab PO SCH ×2 (08:38→08:40)
[2017-06-09] MEDS: Gabapentin 100 MG Cap PO SCH (08:40)
[2017-06-09] MEDS ORDERED: ATENOLOL PO SCH (09:00)
[2017-06-09] MEDS ORDERED: CHLORTHALIDONE PO SCH (09:00)
[2017-06-09] MEDS ORDERED: Atenolol 50 MG Tab PO SCH (09:00)
[2017-06-09] MEDS ORDERED: Aspirin 81 MG Tab.Chew PO SCH (09:00)
[2017-06-09] MEDS ORDERED: MYBETRIQ PO SCH (09:00)
[2017-06-09] MEDS ORDERED: ClonazePAM 0.5 MG Tab PO SCH (09:00)
[2017-06-09] MEDS ORDERED: Losartan 25 MG Tab PO SCH (09:00)
[2017-06-09] MEDS ORDERED: Clopidogrel 75 MG Tab PO SCH (09:00)
[2017-06-09] MEDS ORDERED: Isosorbide Mononitrate 60 MG Tab.ER PO SCH (09:00)
[2017-06-09] MEDS ORDERED: Fenofibrate Nanocrystallized 145 MG Tab PO SCH (09:00)
[2017-06-09] MEDS ORDERED: Spironolactone 25 MG Tab PO SCH (09:00)
[2017-06-09] MEDS ORDERED: PALIPERIDONE 9 MG PO SCH (09:00)
--- NOTE | 2017-06-09 15:10 | CR ---
Chest: Frontal view of the chest was obtained. Comparison: Previous chest x-ray of 06/14/14. Heart size is within normal limits. Tortuous thoracic aorta is seen. Lungs are clear with no acute infiltrates. Bony structures are grossly intact. Impression: 1. Nothing acute is identified on frontal chest x-ray. Diagnostic code #2
--- NOTE | 2017-06-10 17:14 | PCM.SURGPN ---
- General Info Date of Service: 06/09/17 Functional Status: Reports: Pain Controlled, Tolerating Diet, Urinating - Review of Systems General: Reports: No Symptoms HEENT: Reports: No Symptoms Pulmonary: Reports: No Symptoms Gastrointestinal: Reports: No Symptoms - Patient Data Vitals - Most Recent: Last Vital Signs Temp 36.3 C 06/09/17 08:00 Pulse 83 06/09/17 08:00 Resp 20 06/09/17 08:00 BP 132/71 06/09/17 08:38 Pulse Ox 100 06/09/17 09:01 Weight - Most Recent: 75.523 kg Med Orders - Current: Current Medications Discontinued Medications Acetaminophen (Tylenol) 325 mg PO Q4H PRN PRN Reason: Pain Last Admin: 06/08/17 21:40 Dose: 325 mg Albuterol/Ipratropium (Duoneb 3.0-0.5 Mg/3 Ml) 3 ml NEB QIDRT [facility] Last Admin: 06/09/17 09:01 Dose: 3 ml Aspirin (Aspirin) 81 mg PO DAILY [facility] Last Admin: 06/09/17 08:39 Dose: 81 mg Budesonide (Pulmicort) 0.5 mg INH BIDRT [facility] Last Admin: 06/09/17 06:31 Dose: 0.5 mg Clonazepam (Klonopin) 1 mg PO BEDTIME [facility] Last Admin: 06/09/17 07:22 Dose: Not Given Clonazepam (Klonopin) 0.5 mg PO DAILY [facility] Last Admin: 06/09/17 08:39 Dose: 0.5 mg Clopidogrel Bisulfate (Plavix) 75 mg PO DAILY [facility] Last Admin: 06/09/17 08:39 Dose: 75 mg Dexamethasone (Dexamethasone) Confirm Administered Dose 12 mg .ROUTE .STK-MED ONE Stop: 06/08/17 19:56 Fenofibrate (Tricor) 145 mg PO DAILY [facility] Last Admin: 06/09/17 08:39 Dose: 145 mg Fentanyl (Sublimaze) Confirm Administered Dose 100 mcg .ROUTE .STK-MED ONE Stop: 06/08/17 18:25 Gabapentin (Neurontin) 100 mg PO BID [facility] Last Admin: 06/09/17 08:40 Dose: 100 mg Glimepiride (Amaryl) 1 mg PO DAILY@0700 [facility] Last Admin: 06/09/17 08:39 Dose: 1 mg Sodium Chloride (Normal Saline) 1,000 mls @ 40 mls/hr IV ASDIRECTED [facility] Last Admin: 06/08/17 22:05 Dose: 40 mls/hr Isosorbide Mononitrate (Imdur) 60 mg PO DAILY [facility] Last Admin: 06/09/17 08:38 Dose: 60 mg Levothyroxine Sodium (Synthroid) 50 mcg PO ACBREAKFAST [facility] Last Admin: 06/09/17 07:22 Dose: 50 mcg Lorazepam (Ativan) 0.5 mg IVPUSH ONETIME ONE Stop: 06/08/17 17:39 Last Admin: 06/08/17 19:14 Dose: Not Given Lorazepam (Ativan) 0.5 mg PO BID PRN PRN Reason: unknown Last Admin: 06/08/17 22:04 Dose: 0.5 mg Lorazepam (Ativan) 0.5 mg PO BID [facility] Last Admin: 06/09/17 08:40 Dose: 0.5 mg Losartan Potassium (Cozaar) 25 mg PO DAILY [facility] Last Admin: 06/09/17 08:38 Dose: 25 mg Metformin HCl (Glucophage) 500 mg PO BIDMEALS [facility] Last Admin: 06/09/17 08:39 Dose: 500 mg Midazolam HCl (Versed 1 Mg/Ml) Confirm Administered Dose 2 mg .ROUTE .STK-MED ONE Stop: 06/08/17 18:25 Nitroglycerin (Nitrostat) 0.4 mg SL ASDIRECTED PRN PRN Reason: Chest Pain Non-Formulary Medication (Oxygen) 2 liter INH ASDIRECTED [facility] Ondansetron HCl (Zofran) 4 mg IVPUSH Q6H PRN PRN Reason: Nausea/Vomiting Pantoprazole Sodium (Protonix Iv) 40 mg IVPUSH DAILY@1999 [facility] Last Admin: 06/08/17 21:24 Dose: 40 mg Mybetriq (Mirabegron (25 Mg)) 0 each PO DAILY [facility] Paliperidone [Invega (] 9 Mg) 0 each PO DAILY [facility] Atenolol/Chlorthalidone 50/25 Tablet 0 each PO DAILY [facility] Potassium Chloride (Klor-Con M20) 20 meq PO BIDMEALS [facility] Last Admin: 06/09/17 08:38 Dose: 20 meq Propofol (Diprivan 20 Ml) Confirm Administered Dose 200 mg .ROUTE .STK-MED ONE Stop: 06/08/17 18:25 Sodium Chloride (Saline Flush) 10 ml FLUSH ASDIRECTED PRN PRN Reason: Keep Vein Open Spironolactone (Aldactone) 25 mg PO DAILY [facility] Last Admin: 06/09/17 08:38 Dose: 25 mg Trazodone HCl (Trazodone) 50 mg PO BEDTIME [facility] Last Admin: 06/08/17 21:24 Dose: 50 mg - Exam General: Alert, Oriented, Cooperative, No Acute Distress GI/Abdominal Exam: Soft, Non-Tender - Problem List & Annotations (1) Esophageal obstruction due to food impaction SNOMED Code(s): 769278376 Code(s): K22.2 - ESOPHAGEAL OBSTRUCTION; T18.128A - FOOD IN ESOPHAGUS CAUSING OTHER INJURY, INITIAL ENCOUNTER Status: Resolved Priority: High - Problem List Review Problem List Initiated/Reviewed/Updated: Yes - Assessment Assessment (Free Text/Narrative):: Ready for discharge with no sequelae from the precipitating entity and the endoscopic management. I received notification from [facility] physician in regards medical necessity inpatient outpatient services. Dr. Lozoya and I reviewed the patient medical record and I agree with their recommendation of outpatient services. - Plan Plan (Free Text/Narrative):: Discharge today.
== END 2017-06-09 11:01 | disposition home or self-care (01) | DRG 395 ==
LOC: JD.ED 17:10 → JD.SDS 18:03 → JD.ICU 19:42
PROVIDERS: ADMIT Surgery; ATTEND Surgery
PROC: 0DC48ZZ Extirpation of Matter from Esophagogastric Junction, Via Natural or Artificial Opening Endoscopic (ICD-10-PCS; principal; 2017-06-08)
DX: T18.120A Food in esophagus causing compression of trachea, initial encounter (principal); R06.89 Other abnormalities of breathing; Z66 Do not resuscitate; T18.128A Food in esophagus causing other injury, initial encounter; X58.XXXA Exposure to other specified factors, initial encounter; Z79.51 Long term (current) use of inhaled steroids; Z79.02 Long term (current) use of antithrombotics/antiplatelets; Z79.84 Long term (current) use of oral hypoglycemic drugs; Z79.82 Long term (current) use of aspirin; Z99.81 Dependence on supplemental oxygen; Z79.899 Other long term (current) drug therapy; Z87.891 Personal history of nicotine dependence
CPT/HCPCS: 36415; 43247; 71010; 80053; 85025; 85610; 85730; 93005; 99285; J2250; J3010; 00740; 82962; 87641; 94640-76; 94664; A9270-GY; C9113; J1100; J2704; J7040

== ENCOUNTER 2017-11-15 00:29 | Emergency (ER) | payer MEDICARE, BC, MEDICAID ==
[2017-11-15 00:36] VITALS: BP 128/75
--- NOTE | 2017-11-15 00:39 | EDM.PDOC ---
ED HPI GENERAL MEDICAL PROBLEM - General Chief Complaint: ENT Problem Stated Complaint: [facility] Time Seen by Provider: 11/15/17 00:29 Source of Information: Reports: Patient, EMS, [facility] Records History Limitations: Reports: Other (Speech is difficult to understand as she is dysarthric and she does not have her upper dentures in place.) - History of Present Illness INITIAL COMMENTS - FREE TEXT/NARRATIVE: 82-year-old female currently residing in local correction states that she lost her balance and fell face first in the bathroom of her suite. She suffered blunt trauma to her nose zygomatic process on the left side as well as supraorbital ridge on the left side. She was not wearing her glasses of time she fell. She has a mild headache. She has some mild diffuse left-sided neck pain. She appears to blend on both her knees. She apparently could walk after injury. She remembers the accident. No history of loss of consciousness. Of note takes clonazepam 1 mg at bedtime which could make her prone to falling Onset: Today Onset Date: 11/15/17 Onset Time: 00:00 Duration: Minutes: Location: Reports: Head, Face, Neck, Lower Extremity, Left, Lower Extremity, Right (Left knee right knee.) Quality: Reports: Ache (She describes as mild with very little discomfort.) Severity: Mild Improves with: Reports: None Worsens with: Reports: Other (Touching the area.) Context: Reports: Trauma (Tripped and fell in her bathroom at the suite of her correction.), Other. 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 (see below) (None.) - Related Data Allergies Allergy/AdvReac Type Severity Reaction Status Date / Time risperidone [From Risperdal] AdvReac Hallucinati Verified 11/15/17 00:36 ons Home Meds: Home Meds Acetaminophen [Tylenol] 325 mg PO Q4H PRN 06/14/14 [History] Aspirin [Sharita Chewable Aspirin] 81 mg PO DAILY 06/14/14 [History] Atenolol/Chlorthalidone [Atenolol-Chlorthalidone 50-25] 25 mg PO DAILY 06/14/14 [History] B2/Vit A,C & E/Lut/Zeaxanth/Mn [Icaps] 1 tab PO DAILY 06/14/14 [History] Budesonide [Pulmicort] 0.5 mg INH BID 06/14/14 [History] Calcium Carbonate [Tums] 2 tab PO Q4HR PRN 06/14/14 [History] ClonazePAM [KlonoPIN] 0.5 mg PO DAILY 06/14/14 [History] ClonazePAM [KlonoPIN] 1 mg PO BEDTIME 06/14/14 [History] Clopidogrel [Plavix] 75 mg PO DAILY 06/14/14 [History] Cyanocobalamin (Vitamin B12) [Vitamin B12] 1,000 mcg IM ASDIRECTED 06/14/14 [ History] Fenofibrate Nanocrystallized [Tricor] 145 mg PO DAILY 06/14/14 [History] Gabapentin [Neurontin] 100 mg PO BID 06/14/14 [History] Glimepiride [Amaryl] 1 mg PO DAILY 06/14/14 [History] Ibuprofen 400 mg PO TIDPC PRN 06/14/14 [History] Immodium 2 tab PO ASDIRECTED PRN 06/14/14 [History] Isosorbide Mononitrate [Imdur] 60 mg PO DAILY 06/14/14 [History] LORazepam [Ativan] 0.5 mg PO BID PRN 06/14/14 [History] Levothyroxine [Synthroid] 50 mcg PO DAILY 06/14/14 [History] Losartan [Cozaar] 25 mg PO DAILY 06/14/14 [History] Mirabegron [Myrbetriq] 25 mg PO DAILY 06/14/14 [History] Nitroglycerin 0.4 mg SL ASDIRECTED PRN 06/14/14 [History] Omeprazole 40 mg PO DAILY 06/14/14 [History] Oxygen 2 liter INH ASDIRECTED 06/14/14 [History] Polyethylene Glycol 3350 [MiraLAX] 17 gm PO DAILY PRN 06/14/14 [History] Potassium Chloride 20 meq PO BID 06/14/14 [History] Spironolactone [Aldactone] 25 mg PO DAILY 06/14/14 [History] atorvaSTATin [Lipitor] 10 mg PO DAILY 06/14/14 [History] metFORMIN [Glucophage] 500 mg PO BID 06/14/14 [History] traZODone 50 mg PO BEDTIME 06/14/14 [History] Carbamide Peroxide [Debrox 6.5% Otic Soln] 4 drop OT ONCALL 07/25/14 [History] Docusate Sodium 100 mg PO BID PRN 07/25/14 [History] Albuterol/Ipratropium [DuoNeb 3.0-0.5 MG/3 ML] 3 ml QID 11/14/14 [History] LORazepam [Ativan] 0.5 mg PO BID 09/20/15 [History] Paliperidone [Invega] 9 mg PO DAILY 09/20/15 [History] Vagisil Wash 1 appful TOP ASDIRECTED PRN 09/20/15 [History] Past Medical History HEENT History: Reports: Impaired Vision, Other (See Below) Other HEENT History: wears corrective lenses, dry eye syndrome Cardiovascular History: Reports: CAD, Hypertension, Other (See Below) Respiratory History: Reports: COPD, Other (See Below) Other Respiratory History: chronic O2 use Gastrointestinal History: Reports: Chronic Constipation, GERD Genitourinary History: Reports: Urinary Incontinence Other Genitourinary History: overactive bladder 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: Musculoskeletal History: Reports: Back Pain, Chronic, Osteoarthritis Other Musculoskeletal History: generalized weakness, left sided weakness secondary to stroke Neurological History: Reports: CVA, Other (See Below) Other Neuro History: unspecified polyneuropathy, dyskinesia, drug induced dyskinesia Psychiatric History: Reports: Anxiety, Dementia, Depression Endocrine/Metabolic History: Reports: Diabetes, Type II Other Endocrine/Metabolic History: hypomagnesmia, deficiency of vitamin B Hematologic History: Reports: B12 Deficiency, Other (See Below) Other Hematologic History: plavix use Dermatologic History: Reports: Other (See Below) Other Dermatologic History: benign lipomatous neoplasm of skin - Infectious Disease History Infectious Disease History: Reports: Chicken Pox - Past Surgical History Neurological Surgical History: Reports: None Social & Family History - Family History Family Medical History: Noncontributory - Tobacco Use Smoking Status *Q: Never Smoker Years of Tobacco use: 15 Used Tobacco, but Quit: Yes Month Tobacco Last Used: October 2004 Second Hand Smoke Exposure: No - Caffeine Use Caffeine Use: Reports: Coffee - Alcohol Use Days Per Week of Alcohol Use: 0 - Recreational Drug Use Recreational Drug Use: No - Living Situation & Occupation Living situation: Reports: , Extended Care Facility Review of Systems - Review of Systems Review Of Systems: See Below Constitutional: Reports: Weakness. Denies: Chills, Diaphoresis, Fever Eyes: Reports: Other. Denies: Decreased Acuity Ears: Reports: No Symptoms (Does wear eyeglasses.) Nose: Reports: Other (Some pain from the nose She is some mild active bleeding from the left anterior nasal area. ) Mouth/Throat: Reports: Other (She is not wearing her upper plate. Only her lower teeth are present.) Respiratory: Reports: No Symptoms Cardiovascular: Denies: Chest Pain, Edema, Irregular Heart Rate, Syncope GI/Abdominal: Reports: Other (Some problems with constipation.) Genitourinary: Reports: Incontinence (Urge and stress components) Musculoskeletal: Reports: Shoulder Pain, Back Pain, Joint Pain Skin: Reports: No Symptoms (Knees and hips at times.) Neurological: Reports: Headache Psychiatric: Reports: Other (History of hallucinations from medications.) ED EXAM, GENERAL - Physical Exam Exam: See Below Exam Limited By: Other General Appearance: Alert (Vague historian.), WD/WN, No Apparent Distress Eye Exam: Bilateral Eye: Periorbital Changes (Has bruising and swelling of the left supraorbital ridge. Swelling of the infraorbital aspect of her left eye over the zygomatic process as well.), PERRL Ears: Normal TMs Nose: Other (Nose is widened and swollen. Active bleeding from left anterior naris. Minimal bleeding from the right naris. Appears to be a very large nasal polyp on the right side. Unable to visualize the posterior aspect of the left naris. There is no nasal septal hematoma at present.) Throat/Mouth: Normal Inspection, Normal Lips, Normal Teeth (Only has bottom teeth. ), Other (There is slight blood bright red in the left posterior oropharynx.) Head: Other (Mild swelling left frontal cortex of scalp.) Neck: Normal Inspection, Full Range of Motion, Tender Lateral (Tender laterally left side C4-5 level.). No: Limited Range of Motion, Lymphadenopathy (L), Lymphadenopathy (R) Respiratory/Chest: No Respiratory Distress, Lungs Clear, Normal Breath Sounds, Other (No obvious tenderness to her ribs or anterior chest.) Cardiovascular: Normal Peripheral Pulses, Regular Rate, Rhythm, No Edema, No Gallop Peripheral Pulses: 1+: Posterior Tibial (L), Posterior Tibial (R), Dorsalis Pedis (L), Dorsalis Pedis (R) GI/Abdominal: Normal Bowel Sounds, Soft, Non-Tender, No Organomegaly Back Exam: Normal Inspection, Full Range of Motion, Other (There is an old bruise left back just inferior to the scapula that appears to be 3-4 days old. It is about 5 cm in diameter she doesn't know how she contracted this.). No: CVA Tenderness (L), CVA Tenderness (R) Extremities: Other (No obvious injuries to her wrists hands elbows or shoulders. Knees show evidence of mild contusion over the patellas bilaterally. No patellofemoral crepitus and no evidence of fractures clinically. Hips are normal with full range of motion and no pain on external/internal rotation.) Neurological: Alert, Oriented, CN II-XII Intact, Normal Cognition, No Motor/ Sensory Deficits Psychiatric: Flat Affect Skin Exam: Warm, Dry, Intact, Normal Color, Pallor (Slight pallor.) Course - Vital Signs Last Recorded V/S: Last Vital Signs Temp 36.2 C 11/15/17 00:33 Pulse 65 11/15/17 00:33 Resp 16 11/15/17 00:33 BP 128/75 11/15/17 00:33 Pulse Ox 98 11/15/17 00:33 - Orders/Labs/Meds Orders: Active Orders 24 hr Category Date Time Status Cervical Spine wo Cont [CT] Stat Exams 11/15/17 00:35 Taken Head wo Cont [CT] Stat Exams 11/15/17 00:34 Taken Maxillofacial w/o CM [Max Facial Sinus wo Cont] [CT] Exams 11/15/17 00:34 Taken Stat - Radiology Interpretation Free Text/Narrative:: 82-year-old female apparently lost her balance and [facility]. She apparently landed primarily face first with direct blow to her nose and left krishna-face over the zygomatic process and left supraorbital ridge of her eye. Extraocular movements are normal. No palpable facial deformities although clinically I suspect she has fractured her nasal septum. Active bleeding from the left anterior naris. Mild tenderness left cervical spine. Mild contusion to the left forehead. Contusions to both knees but no injuries to the upper extremities identified. No fractures in the lower extremities identified plan CT head neck and maxillofacial bones. - Re-Assessments/Exams Free Text/Narrative Re-Assessment/Exam: 11/15/17 01:04 CT of the cervical spine reveals advanced degenerative changes with complete loss of disc spaces between C3-C4 C4-C5 and C5-C6. There are no fractures identified. CT of the brain reveals advanced degenerative changes with brain shrinkage. Sulci bilaterally. There is no intracranial bleeding or mass effect. Diffuse small vessel ischemic changes present in both basal ganglia. No fractures in the frontal scalp. CT of the maxillofacial bones reveals deviated nasal septum to the left side. No other fractures are identified in the zygomatic processes or superior orbital rim. Mandible is intact as well. 11/15/17 01:35 Vrad agrees with no obvious fractures evident. Severe degenerative brain changes. 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 Plan I'm going to clean up her left naris just make sure there is no persistent active bleeding and cauterize Departure - Departure Time of Disposition: 02:13 Disposition: DC/Tfer to Nursing Home [facility] 64 Condition: Fair Clinical Impression: Fall as cause of accidental injury at home as place of occurrence Qualifiers: Encounter type: initial encounter Qualified Code(s): W19.XXXA - Unspecified fall, initial encounter Contusion of face Qualifiers: Encounter type: initial encounter Qualified Code(s): S00.83XA - Contusion of other part of head, initial encounter Sprain of cervical neck Qualifiers: Encounter type: initial encounter Qualified Code(s): S13.9XXA - Sprain of joints and ligaments of unspecified parts of neck, initial encounter - Discharge Information Forms: ED Department Discharge Additional Instructions: Evaluation the emergency room tonight in regards to a fall in her bathroom at home. Resulted in blunt facial trauma to the nose and left side of your face of particularly tissue and bone around her left eye and cheek bone. CT of the facial bones reveals no broken bones. Eye socket is normal. CT of the brain reveals no bleeding in the brain or skull fractures. Similarly CT of your neck bones shows advanced degenerative arthritis changes but no broken bones. The left nose continued to bleed fairly actively and we cleaned it up and cauterized couple ever areas that were bleeding to bring the bleeding under control. Expect to have much more stiffness and soreness in her neck tomorrow. Similarly knees will likely be a little more sore from the fall as well. May apply ice packs to sore areas for 20 minutes out of every 4 hours today and tomorrow. May use Tylenol as needed for pain relief. - My Orders Last 24 Hours: My Active Orders 11/15/17 00:34 Head wo Cont [CT] Stat Maxillofacial w/o CM [Max Facial Sinus wo Cont] [CT] Stat 11/15/17 00:35 Cervical Spine wo Cont [CT] Stat - Assessment/Plan Last 24 Hours: My Active Orders 11/15/17 00:34 Head wo Cont [CT] Stat Maxillofacial w/o CM [Max Facial Sinus wo Cont] [CT] Stat 11/15/17 00:35 Cervical Spine wo Cont [CT] Stat
--- NOTE | 2017-11-15 07:54 | CT ---
CT cervical spine Technique: Multiple axial sections were obtained from above C1 inferiorly to the bottom of T2. Reconstructed sagittal and coronal images were reviewed. Findings: Degenerative change is noted between the dens and anterior arch of C1. Posterior disc space narrowing is noted at C3-C4 with mild posterior spurring. Other disc spaces are maintained. Minimal spondylolisthesis is noted at C4-C5 compatible with degenerative apophyseal change. Other degenerative apophyseal change is noted throughout the cervical spine most prominent within the mid and upper levels. Scattered endplate osteophytes are seen. Posterior skull base appears intact. Vertebral bodies and posterior arches are intact with no fracture being seen. Mild left-sided neural foraminal stenosis is noted at C3-C4. Other neural foramina are fairly well patent. No bony central canal stenosis is seen. Impression: 1. Degenerative change as noted above. Nothing acute is identified on CT study of the cervical spine. Diagnostic code #2 I agree with preliminary report issued by [facility] ([facility] preliminary report dictated on 11/15/17, 2:31 AM Central Time)
--- NOTE | 2017-11-15 07:54 | CT ---
CT facial bones Technique: Multiple axial sections through the facial bones were obtained. Reconstructed coronal and sagittal images were also obtained. Comparison: No prior facial CT exam. Findings: Mild soft tissue swelling is seen within the left periorbital region and above the left orbital region. Bony structures are osteopenic. Minimal retention cyst is incidentally noted within the inferior left maxillary sinus measuring 1 cm. Nasoseptal deviation is incidentally noted. No acute fracture or other abnormality is seen on CT facial bone study. Impression: 1. Soft tissue swelling within and above the left periorbital region. 2. Other incidental findings. 3. Nothing acute is appreciated on CT study of the facial bones. Diagnostic code #2 I agree with preliminary report issued by [facility] ([facility] preliminary report dictated on 11/15/17, 2:22 AM Central Time)
--- NOTE | 2017-11-15 07:54 | CT ---
Head CT Technique: Multiple axial sections through the brain were obtained. Intravenous contrast was not utilized. Comparison: Previous head CT study of 09/20/15. Findings: Moderate atrophy is seen within the frontal and parietal regions on both sides. Sulci over the convexities are prominent. Ventricles are mildly prominent. Diminished density is noted within the periventricular and subcortical white matter which is compatible with small vessel ischemic demyelination change. No other abnormal parenchymal densities are seen. Atherosclerotic calcification is noted within the vertebral vessels and within the carotid siphon. Bone window settings were reviewed which show no acute calvarial abnormality. Visualized sinuses are clear. Impression: 1. Senescent change with greater cortical atrophy. Findings are similar to prior exam. 2. Other senescent change as noted above. 3. No acute intracranial abnormality is identified. Diagnostic code #2 I agree with preliminary report issued by [employer] ([facility]) ([facility] preliminary report dictated on 11/15/17, 2:28 AM Central Time)
== END 2017-11-15 02:22 ==
LOC: JD.ED 00:29
DX: S13.9XXA Sprain of joints and ligaments of unspecified parts of neck, initial encounter (principal); S00.83XA Contusion of other part of head, initial encounter; I10 Essential (primary) hypertension; E11.42 Type 2 diabetes mellitus with diabetic polyneuropathy; Z79.82 Long term (current) use of aspirin; Z79.899 Other long term (current) drug therapy; Z79.84 Long term (current) use of oral hypoglycemic drugs; W19.XXXA Unspecified fall, initial encounter; Y92.002 Bathroom of unspecified non-institutional (private) residence as the place of occurrence of the external cause
CPT/HCPCS: 70450; 70450-26; 70486; 70486-26; 72125; 72125-26; 99283; 99285-25

== ENCOUNTER 2018-11-09 06:44 | Inpatient (IN) | payer MEDICARE, BC, MEDICAID ==
[2018-11-09] MEDS ORDERED: Sodium Chloride 0.9% 10 ML Syringe FLUSH PRN (06:52)
--- NOTE | 2018-11-09 07:09 | EDM.PDOC ---
<AnishaMatt bourgeois Lary - Last Filed: 11/09/18 07:55> ED HPI GENERAL MEDICAL PROBLEM - General Chief Complaint: Neuro Symptoms/Deficits Stated Complaint: [facility] Time Seen by Provider: 11/09/18 06:51 Source of Information: Reports: Patient, EMS, Family, [facility] Records, RN Notes Reviewed - History of Present Illness INITIAL COMMENTS - FREE TEXT/NARRATIVE: 83-year-old female who's been brought in by [facility] with history of left-sided paralysis, onset sometime during the night. Last known well was about 9 hours ago last evening. At around 9 PM last evening patient did complain to half-way staff that she felt weak on her left side. However when half-way staff did a neuro exam they did not detect a focal weakness. Therefore there was not felt any need for transfer here to the ED last evening. On awakening this morning a short time ago she is completely paralyzed on the left. She has left facial droop and some dysarthria. On arrival to ED she does deny headache and there has been no nausea or vomiting. She does have history of hypertension, prior TIAs. - Related Data Allergies Allergy/AdvReac Type Severity Reaction Status Date / Time risperidone [From Risperdal] AdvReac Hallucinati Verified 11/09/18 06:59 ons Home Meds: Home Meds Acetaminophen [Tylenol] 325 mg PO Q6H PRN 11/09/18 [History] Atenolol 25 mg PO DAILY 11/09/18 [History] Atropine Sulfate In 0.9% NaCl [Atropine 0.01%-Ns Eye Drops] 1 drop SL Q8H PRN [History] Calcium Carbonate [Tums] 200 mg PO Q4H PRN 11/09/18 [History] Carboxymethylcellulose Sodium [Refresh Tears 0.5%] 2 drop EYEBOTH TID 11/09/18 [ History] Chlorhexidine Gluconate [Peridex] 15 ml MM BID 11/09/18 [History] Clopidogrel [Plavix] 75 mg PO DAILY 11/09/18 [History] Cyanocobalamin (Vitamin B-12) [Vitamin B-12] 1,000 mcg PO ASDIRECTED 11/09/18 [ History] Docusate Sodium [Colace] 100 mg PO BID 11/09/18 [History] Donepezil HCl [Aricept] 10 mg PO DAILY 11/09/18 [History] Fenofibrate Nanocrystallized [Tricor] 145 mg PO DAILY 11/09/18 [History] Gabapentin [Neurontin] 200 mg PO BID 11/09/18 [History] Glimepiride [Amaryl] 1 mg PO DAILY 11/09/18 [History] Hydrocortisone [Anusol-HC] 25 mg RECTAL BID PRN 11/09/18 [History] Ibuprofen [Motrin] 200 mg PO Q8H PRN 11/09/18 [History] Isosorbide Mononitrate [Imdur] 30 mg PO DAILY 11/09/18 [History] Levothyroxine [Synthroid] 50 mcg PO DAILY 11/09/18 [History] Loperamide HCl [Imodium A-D] 4 mg PO DAILY PRN 11/09/18 [History] Losartan [Cozaar] 25 mg PO DAILY 11/09/18 [History] Magnesium Oxide 400 mg PO DAILY 11/09/18 [History] Mirabegron [Myrbetriq] 25 mg PO BEDTIME 11/09/18 [History] Nitroglycerin [Nitrostat] 0.4 mg SL DAILY PRN 11/09/18 [History] Ondansetron [Zofran] 4 mg PO Q6H PRN 11/09/18 [History] PARoxetine HCl [Paxil] 40 mg PO DAILY 11/09/18 [History] Pantoprazole Sodium [Protonix] 40 mg PO DAILY 11/09/18 [History] Polyethylene Glycol 3350 [MiraLAX] 17 gm PO DAILY PRN 11/09/18 [History] Potassium Chloride 10 meq PO DAILY 11/09/18 [History] atorvaSTATin [Lipitor] 10 mg PO DAILY 11/09/18 [History] clonazePAM [Clonazepam] 1 mg PO BID 11/09/18 [History] metFORMIN [Glucophage XR] 500 mg PO DAILY 11/09/18 [History] traMADol [Ultram] 50 mg PO BEDTIME 11/09/18 [History] Past Medical History HEENT History: Reports: Impaired Vision, Other (See Below) Other HEENT History: wears corrective lenses, dry eye syndrome Cardiovascular History: Reports: CAD, Hypertension, Other (See Below) Respiratory History: Reports: COPD, Other (See Below) Other Respiratory History: chronic O2 use Gastrointestinal History: Reports: Chronic Constipation, GERD Genitourinary History: Reports: Urinary Incontinence Other Genitourinary History: overactive bladder [employer] History: Reports: Musculoskeletal History: Reports: Back Pain, Chronic, Osteoarthritis Other Musculoskeletal History: generalized weakness, left sided weakness secondary to stroke Neurological History: Reports: CVA, Other (See Below) Other Neuro History: unspecified polyneuropathy, dyskinesia, drug induced dyskinesia Psychiatric History: Reports: Anxiety, Dementia, Depression Endocrine/Metabolic History: Reports: Diabetes, Type II Other Endocrine/Metabolic History: hypomagnesmia, deficiency of vitamin B Hematologic History: Reports: B12 Deficiency, Other (See Below) Other Hematologic History: plavix use Dermatologic History: Reports: Other (See Below) Other Dermatologic History: benign lipomatous neoplasm of skin - Infectious Disease History Infectious Disease History: Reports: Chicken Pox - Past Surgical History Neurological Surgical History: Reports: None Social & Family History - Family History Family Medical History: Noncontributory - Tobacco Use Smoking Status *Q: Never Smoker - Caffeine Use Caffeine Use: Reports: Coffee - Recreational Drug Use Recreational Drug Use: No - Living Situation & Occupation Living situation: Reports: , Extended Care Facility ED ROS GENERAL - Review of Systems Review Of Systems: See Below Constitutional: Denies: Fever HEENT: Denies: Throat Pain Respiratory: Reports: Shortness of Breath (Chronically), Cough Cardiovascular: Denies: Chest Pain (Chronic) GI/Abdominal: Denies: Abdominal Pain, Nausea, Vomiting Skin: Denies: Rash Neurological: Reports: Weakness (Total paralysis left side). Denies: Headache ED EXAM, NEURO - Physical Exam Exam: See Below General Appearance: Alert (Patient is awake, makes good eye contact, obeying commands, attempting to answer questions) Eye Exam: Bilateral Eye: PERRL Ears: Normal External Exam Nose: Normal Inspection Throat/Mouth: Normal Inspection, Normal Oropharynx Head Exam: No: Facial Swelling Neck: Supple, Other Respiratory/Chest: No Respiratory Distress (No JVD), Lungs Clear, Normal Breath Sounds Cardiovascular: Regular Rate, Rhythm GI/Abdominal: Soft, Non-Tender. No: Guarding Neurological: Alert, Other (Complete left-sided paralysis left upper and left lower extremities, left facial droop, speech dysarthria but answers are appropriate) Back Exam: No: CVA Tenderness (L), CVA Tenderness (R) Extremities: No: Pedal Edema Skin Exam: Warm, Dry, Normal Color Course - Vital Signs Last Recorded V/S: Last Vital Signs Temp 36.2 C 11/09/18 06:48 Pulse 80 11/09/18 12:01 Resp 22 H 11/09/18 06:48 BP 185/87 H 11/09/18 12:01 Pulse Ox 100 11/09/18 06:48 - Orders/Labs/Meds Orders: Active Orders 24 hr Category Date Time Status Oxygen Therapy [RC] .PRN Care 11/09/18 06:52 Active Peripheral IV Care [RC] Q2HR Care 11/09/18 06:53 Active Brain wo Cont [MR] Stat Exams 11/09/18 10:42 Taken Sodium Chloride 0.9% [Saline Flush] Med 11/09/18 06:52 Active 10 ml FLUSH ASDIRECTED PRN Peripheral IV Insertion Adult [OM.PC] Stat Oth 11/09/18 06:52 Ordered Medication Orders Acetaminophen (Tylenol) 650 mg PO Q4H PRN PRN Reason: Pain (Mild 1-3)/fever Hydralazine HCl (Apresoline) 10 mg IVPUSH Q6H PRN PRN Reason: Hypertension Dextrose/Sodium Chloride (Dextrose 5%-Normal Saline) 1,000 mls @ 50 mls/hr IV ASDIRECTED KATHLEEN Metoprolol Tartrate (Lopressor) 5 mg IVPUSH Q4H PRN PRN Reason: Tachycardia Ondansetron HCl (Zofran Odt) 4 mg PO Q6H PRN PRN Reason: nausea, able to take PO Ondansetron HCl (Zofran) 4 mg IV Q6H PRN PRN Reason: Nausea/Vomiting Sodium Chloride (Saline Flush) 10 ml FLUSH ASDIRECTED PRN PRN Reason: Keep Vein Open Last Admin: 11/09/18 07:04 Dose: 10 ml Labs: Laboratory Tests 11/09/18 11/09/18 11/09/18 Range/Units 07:05 07:05 07:05 WBC 3.91 L (3.98-10.04) K/mm3 RBC 4.08 (3.98-5.22) M/mm3 Hgb 10.9 L (11.2-15.7) gm/L Hct 37.0 (34.1-44.9) % MCV 90.7 (79.4-94.8) fl MCH 26.7 (25.6-32.2) pg MCHC 29.5 L (32.2-35.5) g/dl RDW Std Deviation 50.8 H (36.4-46.3) fL Plt Count 111 L (182-369) K/mm3 MPV 11.3 (9.4-12.3) fl Neut % (Auto) 64.9 (34.0-71.1) % Lymph % (Auto) 24.6 (19.3-51.7) % [place] % (Auto) 8.2 (4.7-12.5) % Eos % (Auto) 1.3 (0.7-5.8) Baso % (Auto) 0.5 (0.1-1.2) % Neut # (Auto) 2.54 (1.56-6.13) K/mm3 Lymph # (Auto) 0.96 L (1.18-3.74) K/mm3 [place] # (Auto) 0.32 (0.24-0.36) K/mm3 Eos # (Auto) 0.05 (0.04-0.36) K/mm3 Baso # (Auto) 0.02 (0.01-0.08) K/mm3 Manual Slide Review Abnormal smear PT 11.4 (9.5-12.1) SECONDS INR 1.05 Sodium 144 (136-145) mEq/L Potassium 3.9 (3.5-5.1) mEq/L Chloride 105 (98-107) mEq/L Carbon Dioxide 32 (21-32) mEq/L Anion Gap 10.9 (5-15) BUN 18 (7-18) mg/dL Creatinine 0.9 (0.55-1.02) mg/dL Est Cr Clr Drug Dosing TNP Estimated GFR (MDRD) 60 (>60) mL/min BUN/Creatinine Ratio 20.0 H (14-18) Glucose 87 (83-115) mg/dL Calcium 9.3 (8.5-10.1) mg/dL Total Bilirubin 0.4 (0.2-1.0) mg/dL AST 20 (15-37) U/L ALT 18 (14-59) U/L Alkaline Phosphatase 37 L (46-116) U/L Total Protein 7.2 (6.4-8.2) g/dl Albumin 3.6 (3.4-5.0) g/dl Globulin 3.6 gm/dL Albumin/Globulin Ratio 1.0 (1-2) Meds: Medications Generic Name Dose Route Start Last Admin Trade Name Freq PRN Reason Stop Dose Admin Acetaminophen 650 mg 11/09/18 12:36 Tylenol PO Q4H PRN Pain (Mild 1-3)/fever Hydralazine HCl 10 mg 11/09/18 12:39 Apresoline IVPUSH Q6H PRN Hypertension Dextrose/Sodium Chloride 1,000 mls @ 50 mls/hr 11/09/18 12:45 Dextrose 5%-Normal Saline IV ASDIRECTED KATHLEEN Metoprolol Tartrate 5 mg 11/09/18 12:39 Lopressor IVPUSH Q4H PRN Tachycardia Ondansetron HCl 4 mg 11/09/18 12:36 Zofran Odt PO Q6H PRN nausea, able to take PO Ondansetron HCl 4 mg 11/09/18 12:36 Zofran IV Q6H PRN Nausea/Vomiting Sodium Chloride 10 ml 11/09/18 06:52 11/09/18 07:04 Saline Flush FLUSH 10 ml ASDIRECTED PRN Administration Keep Vein Open Discontinued Medications Generic Name Dose Route Start Last Admin Trade Name Freq PRN Reason Stop Dose Admin Metoprolol Tartrate 5 mg 11/09/18 11:53 11/09/18 12:01 Lopressor IVPUSH 11/09/18 11:54 5 mg ONETIME ONE Administration - Re-Assessments/Exams Free Text/Narrative Re-Assessment/Exam: 11/09/18 07:22. Patient arrived just before change of shift. CT does not show hemorrhage, no obvious infarct, awaiting labs and Radiologist report. Have visited with daughter, Marion who lives here in town. She is DNR, DNI, would like to have patient admitted and treated here at this hospital if possible. Transferring care to Dr Flood at this time. Departure - Departure Disposition: Admitted As Inpatient 67 Clinical Impression: Stroke - Discharge Information <Swapnil Flood - Last Filed: 11/09/18 14:07> EKG INTERPRETATION EKG Date: 11/09/18 Time: 07:15 Rhythm: NSR (One PVC) Rate (Beats/Min): 75 [place]: Normal P-Wave: Present QRS: Normal ST-T: Normal QT: Normal Comparison: No Change (06/08/2017) Course - Re-Assessments/Exams Free Text/Narrative Re-Assessment/Exam: 11/09/18 08:08 CT of the head without contrast is read by Dr. Wyatt as: 1. Senescent change which is moderate in severity. Findings are fairly stable from previous exam. Nothing acute is identified at this time. Please correlate if MRI is needed to further evaluate patient's symptoms. Care assumed from Dr. Lancaster. I have evaluated the patient, and discussed her case with both her daughter and son, who are at her bedside. All are agreeable to admitting the patient for physical therapy evaluation, to see what her physical requirements will be before she returns to the [facility]. I will contact the Hospitalist. 11/09/18 08:[address] Giang at 08:15. Because of the patient's code status, and her negative outlook of the future, Dr. Giang would like to have a renal case manager evaluate the patient first, before she accepts. She will let me know her decision. 11/09/18 11:22 I have not heard back from Dr. Giang, however, I am informed that the patient is currently undergoing a MRI, ordered by Dr. Giang, therefore it appears that the patient has been accepted for admission. Departure - Departure Time of Disposition: 11:23 Condition: Fair - Discharge Information *PRESCRIPTION DRUG MONITORING PROGRAM REVIEWED*: Not Applicable *COPY OF PRESCRIPTION DRUG MONITORING REPORT IN PATIENT PHILIP: Not Applicable
--- NOTE | 2018-11-09 07:16 | CT ---
Head CT Technique: Multiple axial sections through the brain were obtained. Intravenous contrast was not utilized. Comparison: Prior head CT exam of 11/15/17. Findings: Ventricles along with basal cisterns and sulci over the convexities are moderately prominent. Diminished density is noted within the periventricular and subcortical white matter compatible with small vessel ischemic demyelination change. No other abnormal parenchymal densities are seen. No evidence of intracranial hemorrhage. No midline shift or mass effect is seen. Atherosclerotic calcification is noted within the carotid siphon. Bone window settings were reviewed which shows no acute calvarial abnormality. Visualized sinuses are clear. Impression: 1. Senescent change which is moderate in severity. Findings are fairly stable from previous exam. Nothing acute is identified at this time. Please correlate if MRI is needed to further evaluate patient's symptoms. Diagnostic code #2
[2018-11-09] MEDS ORDERED: Metoprolol Tartrate 5 MG/5 ML SDV IVPUSH ONE (11:53)
[2018-11-09] MEDS ORDERED: Ondansetron 4 MG/2 ML SDV IV PRN (12:36)
[2018-11-09] MEDS ORDERED: Ondansetron 4 MG Tab.DIS PO PRN (12:36)
[2018-11-09] MEDS ORDERED: hydrALAZINE 20 MG/ML SDV IVPUSH PRN (12:39)
[2018-11-09] MEDS ORDERED: Metoprolol Tartrate 5 MG/5 ML SDV IVPUSH PRN (12:39)
--- NOTE | 2018-11-09 12:43 | PCM.HP ---
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 with left-sided paralysis. She was last seen well around approximately 9 hours prior to coming to the ED. His reported around 9 PM yesterday evening she complained to staff that she was weak on her left side and nursing staff perform a neuro exam which was unremarkable. Upon awakening she is completely paralyzed on her left side. She has left facial droop and dysarthria, however family reports this is chronic for her from a prior stroke and does not appear any worse at this time. In the ED she denied any headache, nausea, or vomiting. She does have a history of hypertension, prior TIAs and CVA. In the ED temperature 36.2 Celsius. Pulse 73. Respirations 22. Blood pressure 207/93. Pulse ox 100%. Labs were obtained: WBC is low at 3.91. Hemoglobin low at 10.9. Hematocrit 37.0. She has normocytic. Platelet are low at 111,000. Neutrophils are normal at 54.9. PT 11.4. INR 1.05. Sodium is 144. Potassium 3.9. Chloride 105. Carbon dioxide 32. Anion gap 10.9. BUN is 19. Creatinine 0.9. EGFR is 60. Glucose is 87. Calcium 9.3. Bilirubin 0.4. AST is 20, ALT 18, alkaline phosphatase low at 37. Protein is 7.2. Albumin 3.6. ET scan of the head is obtained and interpreted by Dr. Wyatt as "1. Senescent changes which is moderate in severity. Findings are fairly stable from previous exam. Nothing acute is identified at this time. Please correlate if MRI is needed to further evaluate patient's symptoms. Twelve-lead EKG is obtained and interpreted by the ED provider as sinus rhythm with 1 PVC at 75 bpm. There is no ST segment abnormalities and no change from . MRI is ordered and interpreted by the rad as "1. Small area of acute to early subacute infarct in right posterior frontal lobe. 2. Atrophy, chronic infarcts, and microvascular disease." Abnormalities noted to be 14 mm and located in the posterior right frontal lobe. No acute intracranial hemorrhages again noted. She carries a history of: GERD vision, CAD, hypertension, COPD, chronic O2 use, chronic constipation, GERD, urinary incontinence, overactive bladder, chronic back pain, osteoporosis, generalized weakness on the left side, CVA, polyneuropathy, dyskinesia, drug-induced dyskinesia, anxiety, dementia, depression, type II DM, hypomagnesemia, deficiency of vitamin B12, benign lipoma tomos neoplasm of skin. She has never a smoker. She was subsequently admitted to the medical floor on telemetry for further CVA rehabilitation. She is a DNR/DNI. CODE STATUS was confirmed by patient and daughter who is reportedly POA. - Related Data Allergies/Adverse Reactions: Allergies Allergy/AdvReac Type Severity Reaction Status Date / Time risperidone [From Risperdal] AdvReac Hallucinati Verified 11/09/18 06:59 ons Home Medications: Home Meds . [Unable To Obtain] 3 liter INH ASDIRECTED MDD keep sat >90% 11/09/18 [History] Acetaminophen [Tylenol] 325 mg PO Q6H PRN 11/09/18 [History] Aspirin [Adult Aspirin] 81 mg PO DAILY 11/09/18 [History] Atenolol 25 mg PO DAILY 11/09/18 [History] Atropine Sulfate In 0.9% NaCl [Atropine 0.01%-Ns Eye Drops] 1 drop SL Q8H PRN [History] Budesonide [Pulmicort] 0.5 mg IH BID 11/09/18 [History] Calcium Carbonate [Tums] 200 mg PO Q4H PRN 11/09/18 [History] Carboxymethylcellulose Sodium [Refresh Tears 0.5%] 2 drop EYEBOTH TID 11/09/18 [ History] Chlorhexidine Gluconate [Peridex] 15 ml MM BID 11/09/18 [History] Clopidogrel [Plavix] 75 mg PO DAILY 11/09/18 [History] Cyanocobalamin (Vitamin B-12) [Vitamin B-12] 1,000 mcg PO ASDIRECTED 11/09/18 [ History] Docusate Sodium [Colace] 100 mg PO BID 11/09/18 [History] Donepezil HCl [Aricept] 10 mg PO BID 11/09/18 [History] Fenofibrate Nanocrystallized [Tricor] 145 mg PO DAILY 11/09/18 [History] Gabapentin [Neurontin] 200 mg PO BID 11/09/18 [History] Glimepiride [Amaryl] 1 mg PO DAILY 11/09/18 [History] Hydrocortisone [Anusol-HC] 25 mg RECTAL BID PRN 11/09/18 [History] Ibuprofen [Motrin] 200 mg PO Q8H PRN 11/09/18 [History] Ipratropium/Albuterol Sulfate [Iprat-Albut 0.5-3(2.5) mg/3 ml] 3 ml IH Q6HR [History] Isosorbide Mononitrate [Imdur] 30 mg PO DAILY 11/09/18 [History] Levothyroxine [Synthroid] 50 mcg PO BEDTIME 11/09/18 [History] Loperamide HCl [Imodium A-D] 4 mg PO DAILY PRN 11/09/18 [History] Losartan [Cozaar] 25 mg PO DAILY 11/09/18 [History] Magnesium Oxide 400 mg PO DAILY 11/09/18 [History] Mirabegron [Myrbetriq] 25 mg PO BEDTIME 11/09/18 [History] Nitroglycerin [Nitrostat] 0.4 mg SL DAILY PRN 11/09/18 [History] Ondansetron [Zofran] 4 mg PO Q6H PRN 11/09/18 [History] PARoxetine HCl [Paxil] 40 mg PO BEDTIME 11/09/18 [History] Pantoprazole Sodium [Protonix] 40 mg PO DAILY 11/09/18 [History] Polyethylene Glycol 3350 [MiraLAX] 17 gm PO DAILY PRN 11/09/18 [History] Potassium Chloride 10 meq PO DAILY 11/09/18 [History] Vit A,C & E/Lutein/Minerals [Healthy Eyes] 1 tab PO DAILY 11/09/18 [History] atorvaSTATin [Lipitor] 10 mg PO DAILY 11/09/18 [History] clonazePAM [Clonazepam] 1 mg PO BID 11/09/18 [History] metFORMIN [Glucophage XR] 500 mg PO DAILY 11/09/18 [History] traMADol [Ultram] 50 mg PO BEDTIME 11/09/18 [History] Past Medical History HEENT History: Reports: Impaired Vision, Other (See Below) Other HEENT History: wears corrective lenses, dry eye syndrome Cardiovascular History: Reports: CAD, Hypertension, Other (See Below) Respiratory History: Reports: COPD, Other (See Below) Other Respiratory History: chronic O2 use Gastrointestinal History: Reports: Chronic Constipation, GERD Genitourinary History: Reports: Urinary Incontinence Other Genitourinary History: overactive bladder HEART DOCTOR History: Reports: Musculoskeletal History: Reports: Back Pain, Chronic, Osteoarthritis Other Musculoskeletal History: generalized weakness, left sided weakness secondary to stroke Neurological History: Reports: CVA, Other (See Below) Other Neuro History: unspecified polyneuropathy, dyskinesia, drug induced dyskinesia Psychiatric History: Reports: Anxiety, Dementia, Depression Endocrine/Metabolic History: Reports: Diabetes, Type II Other Endocrine/Metabolic History: hypomagnesmia, deficiency of vitamin B Hematologic History: Reports: B12 Deficiency, Other (See Below) Other Hematologic History: plavix use Dermatologic History: Reports: Other (See Below) Other Dermatologic History: benign lipomatous neoplasm of skin - Infectious Disease History Infectious Disease History: Reports: Chicken Pox - Past Surgical History Neurological Surgical History: Reports: None Social & Family History - Family History Family Medical History: Noncontributory - Tobacco Use Smoking Status *Q: Never Smoker - Caffeine Use Caffeine Use: Reports: Coffee - Recreational Drug Use Recreational Drug Use: No - Living Situation & Occupation Living situation: Reports: , Extended Care Facility H&P Review of Systems - Review of Systems: Review Of Systems: See Below General: Reports: No Symptoms, Weakness. Denies: Fever, Chills, Malaise, Fatigue, Diaphoresis, Decreased Appetite HEENT: Reports: No Symptoms. Denies: Eye Pain, Headaches, Sore Throat, Visual Changes Pulmonary: Reports: No Symptoms. Denies: Shortness of Breath, Wheezing, Pleuritic Chest Pain, Cough, Sputum Cardiovascular: Reports: Blood Pressure Problem. Denies: Chest Pain, Palpitations, Edema, Syncope Gastrointestinal: Reports: No Symptoms. Denies: Abdominal Pain, Constipation, Diarrhea, Nausea, Vomiting Genitourinary: Reports: No Symptoms. Denies: Pain Musculoskeletal: Reports: No Symptoms Skin: Reports: No Symptoms Psychiatric: Reports: No Symptoms. Denies: Agitation Neurological: Reports: No Symptoms, Pre-Existing Deficit, Trouble Speaking ( chronic ), Difficulty Walking, Weakness, Gait Disturbance. Denies: Dizziness, Tremors, Change in Speech (family reports stable from before ) Hematologic/Lymphatic: Reports: No Symptoms Immunologic: Reports: No Symptoms Exam - Exam Exam: See Below - Vital Signs Vital Signs: Last Vital Signs Temp 97.1 F 11/09/18 06:48 Pulse 80 11/09/18 12:01 Resp 22 H 11/09/18 06:48 BP 185/87 H 11/09/18 12:01 Pulse Ox 100 11/09/18 06:48 Weight: 175 lb - Exam Quality Assessment: Supplemental Oxygen (Usually on 3L ), DVT Prophylaxis General: Alert, Oriented, Cooperative. No: Mild Distress HEENT: Conjunctiva Clear, EACs Clear, EOMI, Hearing Intact, Mucosa Moist & [place] , Nares Patent, Normal Nasal Septum, Posterior Pharynx Clear, Other (Obvious left sided facial droop ). No: PERRLA (left sided deficit although family reports patient has history of macular degeneration.) Neck: Supple, Trachea Midline Lungs: Clear to Auscultation, Normal Respiratory Effort Cardiovascular: Regular Rate, Regular Rhythm GI/Abdominal Exam: Normal Bowel Sounds, Soft, Non-Tender, No Distention, No Abnormal Bruit (Female) Exam: Deferred Rectal (Female) Exam: Deferred Extremities: Normal Inspection, Normal Range of Motion, Non-Tender, No Pedal Edema, Normal Capillary Refill Peripheral Pulses: 2+: Radial (L), Radial (R), Dorsalis Pedis (L), Dorsalis Pedis (R) Skin: Warm, Dry, Intact Neuro Extensive - Motor, Sensory, Reflexes: Abnormal Gait, Dysarthria, Hemeplagia (L), Abnormal Motor, Motor/Sensory Deficits. No: Receptive Aphasia, Expressive Aphasia, Abnormal Sensation Psychiatric: Alert - Patient Data Lab Results Last 24 hrs: Laboratory Results - last 24 hr 11/09/18 11/09/18 11/09/18 Range/Units 07:05 07:05 07:05 WBC 3.91 L (3.98-10.04) K/mm3 RBC 4.08 (3.98-5.22) M/mm3 Hgb 10.9 L (11.2-15.7) gm/L Hct 37.0 (34.1-44.9) % MCV 90.7 (79.4-94.8) fl MCH 26.7 (25.6-32.2) pg MCHC 29.5 L (32.2-35.5) g/dl RDW Std Deviation 50.8 H (36.4-46.3) fL Plt Count 111 L (182-369) K/mm3 MPV 11.3 (9.4-12.3) fl Neut % (Auto) 64.9 (34.0-71.1) % Lymph % (Auto) 24.6 (19.3-51.7) % [place] % (Auto) 8.2 (4.7-12.5) % Eos % (Auto) 1.3 (0.7-5.8) Baso % (Auto) 0.5 (0.1-1.2) % Neut # (Auto) 2.54 (1.56-6.13) K/mm3 Lymph # (Auto) 0.96 L (1.18-3.74) K/mm3 [place] # (Auto) 0.32 (0.24-0.36) K/mm3 Eos # (Auto) 0.05 (0.04-0.36) K/mm3 Baso # (Auto) 0.02 (0.01-0.08) K/mm3 Manual Slide Review Abnormal smear PT 11.4 (9.5-12.1) SECONDS INR 1.05 Sodium 144 (136-145) mEq/L Potassium 3.9 (3.5-5.1) mEq/L Chloride 105 (98-107) mEq/L Carbon Dioxide 32 (21-32) mEq/L Anion Gap 10.9 (5-15) BUN 18 (7-18) mg/dL Creatinine 0.9 (0.55-1.02) mg/dL Est Cr Clr Drug Dosing TNP Estimated GFR (MDRD) 60 (>60) mL/min BUN/Creatinine Ratio 20.0 H (14-18) Glucose 87 (83-115) mg/dL Calcium 9.3 (8.5-10.1) mg/dL Total Bilirubin 0.4 (0.2-1.0) mg/dL AST 20 (15-37) U/L ALT 18 (14-59) U/L Alkaline Phosphatase 37 L (46-116) U/L Total Protein 7.2 (6.4-8.2) g/dl Albumin 3.6 (3.4-5.0) g/dl Globulin 3.6 gm/dL Albumin/Globulin Ratio 1.0 (1-2) Result Diagrams: 11/09/18 07:05 11/09/18 07:05 - Problem List (1) Stroke SNOMED Code(s): 310586307 ICD Code: I63.9 - CEREBRAL INFARCTION, UNSPECIFIED Status: Acute Priority : High Current Visit: Yes Qualifiers: CVA mechanism: unspecified Qualified Code(s): I63.9 - Cerebral infarction, unspecified (2) CAD (coronary artery disease) SNOMED Code(s): 18170972 ICD Code: I25.10 - ATHSCL HEART DISEASE OF [place] CORONARY ARTERY W/O ANG PCTRS Status: Chronic Priority: Medium Current Visit: Yes Qualifiers: Coronary Disease-Associated Artery/Lesion type: unspecified vessel or lesion type [place] vs. transplanted heart: [place] heart Associated angina: angina presence unspecified Qualified Code(s): I25.10 - Atherosclerotic heart disease of [place] coronary artery without angina pectoris (3) COPD (chronic obstructive pulmonary disease) SNOMED Code(s): 23047453 ICD Code: J44.9 - CHRONIC OBSTRUCTIVE PULMONARY DISEASE, UNSPECIFIED Status : Chronic Priority: Medium Current Visit: No Qualifiers: COPD type: unspecified COPD Qualified Code(s): J44.9 - Chronic obstructive pulmonary disease, unspecified (4) HTN (hypertension) SNOMED Code(s): 33980560 ICD Code: I10 - ESSENTIAL (PRIMARY) HYPERTENSION Status: Chronic Priority : Medium Current Visit: No Qualifiers: Hypertension type: unspecified Qualified Code(s): I10 - Essential (primary ) hypertension (5) HLD (hyperlipidemia) SNOMED Code(s): 89585642 ICD Code: E78.5 - HYPERLIPIDEMIA, UNSPECIFIED Status: Chronic Priority: Medium Current Visit: No Qualifiers: Hyperlipidemia type: unspecified Qualified Code(s): E78.5 - Hyperlipidemia , unspecified (6) GERD (gastroesophageal reflux disease) SNOMED Code(s): 987159025 ICD Code: K21.9 - GASTRO-ESOPHAGEAL REFLUX DISEASE WITHOUT ESOPHAGITIS Status: Chronic Priority: Low Current Visit: No Qualifiers: Esophagitis presence: esophagitis presence not specified Qualified Code(s) : K21.9 - Gastro-esophageal reflux disease without esophagitis Problem List Initiated/Reviewed/Updated: Yes Orders Last 24hrs: Active Orders 24 hr Category Date Time Status Patient Status [ADT] Routine ADT 11/09/18 12:36 Active Blood Glucose Check, Bedside [RC] Q6H Care 11/09/18 12:41 Active Cardiac Monitoring [RC] CONTINUOUS Care 11/09/18 12:37 Active EKG 12 Lead [EKG Documentation Completion] [RC] STAT Care 11/09/18 06:52 Active Height and Weight [RC] DAILY Care 11/09/18 12:36 Active Intake and Output [RC] QSHIFT Care 11/09/18 12:37 Active Neuro Check [RC] Q6H Care 11/09/18 12:39 Active Oxygen Therapy [RC] ASDIRECTED Care 11/09/18 06:52 Active Peripheral IV Care [RC] . DIRECTED Care 11/09/18 06:53 Active Pulse Oximetry [RC] PRN Care 11/09/18 12:37 Active Up to Chair [RC] ASDIRECTED Care 11/09/18 12:36 Active VTE/DVT Education [RC] PER UNIT ROUTINE Care 11/09/18 12:36 Active Vital Signs [RC] Q4H Care 11/09/18 12:36 Active Consult to Case Management/Dowel Inserting Machine Operator [CONS] Cons 11/09/18 12:36 Active Routine Consult to Speech Language Pathology [TURKEY EGG GATHERER Evaluation Cons 11/09/18 12:36 Active and Treatment] [CONS] Routine Consult to Spiritual Care [CONS] Routine Cons 11/09/18 12:36 Active OT Evaluation and Treatment [CONS] Routine Cons 11/09/18 12:36 Active PT Evaluation and Treatment [CONS] Routine Cons 11/09/18 12:36 Active Nothing per Oral Now Diet [DIET] Diet 11/09/18 Lunch Active Brain wo Cont [MR] Stat Exams 11/09/18 10:42 Taken BASIC METABOLIC PANEL,BMP [CHEM] AM Lab 11/10/18 05:11 Ordered BASIC METABOLIC PANEL,BMP [CHEM] AM Lab 11/11/18 05:11 Ordered BASIC METABOLIC PANEL,BMP [CHEM] AM Lab 11/12/18 05:11 Ordered BASIC METABOLIC PANEL,BMP [CHEM] AM Lab 11/13/18 05:11 Ordered CBC WITH AUTO DIFF [HEME] AM Lab 11/10/18 05:11 Ordered CBC WITH AUTO DIFF [HEME] AM Lab 11/11/18 05:11 Ordered CBC WITH AUTO DIFF [HEME] AM Lab 11/12/18 05:11 Ordered CBC WITH AUTO DIFF [HEME] AM Lab 11/13/18 05:11 Ordered MAGNESIUM [CHEM] AM Lab 11/10/18 05:11 Ordered MAGNESIUM [CHEM] AM Lab 11/11/18 05:11 Ordered MAGNESIUM [CHEM] AM Lab 11/12/18 05:11 Ordered MAGNESIUM [CHEM] AM Lab 11/13/18 05:11 Ordered Acetaminophen [Tylenol] Med 11/09/18 12:36 Active 650 mg PO Q4H PRN Dextrose 5%-0.9% NaCl [Dextrose 5%-Normal Saline] 1,000 Med 11/09/18 12:45 Active ml IV ASDIRECTED Metoprolol Tartrate [Lopressor] Med 11/09/18 12:39 Ordered 5 mg IVPUSH Q4H PRN Ondansetron [Zofran ODT] Med 11/09/18 12:36 Ordered 4 mg PO Q6H PRN Ondansetron [Zofran] Med 11/09/18 12:36 Ordered 4 mg IV Q6H PRN Sodium Chloride 0.9% [Saline Flush] Med 11/09/18 06:52 Active 10 ml FLUSH ASDIRECTED PRN hydrALAZINE [Apresoline] Med 11/09/18 12:39 Ordered 10 mg IVPUSH Q6H PRN Peripheral IV Insertion Adult [OM.PC] Stat Oth 11/09/18 06:52 Ordered Sequential Compression Device [OM.PC] Per Unit Routine Oth 11/09/18 12:37 Ordered Resuscitation Status Routine Resus Stat 11/09/18 12:36 Ordered Medication Orders Acetaminophen (Tylenol) 650 mg PO Q4H PRN PRN Reason: Pain (Mild 1-3)/fever Hydralazine HCl (Apresoline) 10 mg IVPUSH Q6H PRN PRN Reason: Hypertension Dextrose/Sodium Chloride (Dextrose 5%-Normal Saline) 1,000 mls @ 50 mls/hr IV ASDIRECTED KATHLEEN Metoprolol Tartrate (Lopressor) 5 mg IVPUSH Q4H PRN PRN Reason: Tachycardia Ondansetron HCl (Zofran Odt) 4 mg PO Q6H PRN PRN Reason: nausea, able to take PO Ondansetron HCl (Zofran) 4 mg IV Q6H PRN PRN Reason: Nausea/Vomiting Sodium Chloride (Saline Flush) 10 ml FLUSH ASDIRECTED PRN PRN Reason: Keep Vein Open Last Admin: 11/09/18 07:04 Dose: 10 ml Assessment/Plan Comment:: I/P: Acute: CVA -Risk factors: Hx/o prior TIAs, CVA, HLD, HTN, Type II DM -Family reports prior workup for carotid artery occlusion - were reportedly told not much more can be done -Prior CVA resulting in left sided facial droop and dysartria -Reportedly told SNF staff she felt weak on the left side yesterday evening with normal neuro check then -Awoke to left sided hemiparesis -Patient and family/POA refusing transfer and further workup, wants rehabilitation evaluation only -Brain CT in ED: Moderately severe senescent change; Nothing acute -MRI obtained 11/09/18: Restricted diffusion in posterior right frontal lobe 1. Small area of acute to early subacute infarct in right posterior frontal lobe 2. Atrophy, chronic infarcts, and microvascular disease -Q6H neuro checks -A1C ordered -Lipid panel ordered -NPO for now -TURKEY EGG GATHERER swallow evaluation -D5NS while NPO, Monitor blood sugars -Permissive hypertension -PT/OT Chronic: Impaired vision CAD hypertension COPD with chronic O2 use chronic constipation GERD urinary incontinence overactive bladder chronic back pain osteoporosis generalized weakness on the left side CVA polyneuropathy dyskinesia drug-induced dyskinesia anxiety dementia depression type II DM hypomagnesemia deficiency of vitamin B12 benign lipomatosus neoplasm of skin Plan: Admit to medical floor on telemetry CM/SW for discharge planning Home medications as ordered Pharmacy to assist in converting medications to IV form while NPO Other orders as indicated above Routine AM labs DVT/PE prophylaxis: SCDs for now Spiritual care consult Code status: DNR/DNI; PCP: Dr. Daniels Confirmed code status with patient and daugher/POA on 11/09/18.
[2018-11-09] MEDS ORDERED: Dextrose 5%-0.9% NaCl 1,000 ML IV SCH (12:45)
--- NOTE | 2018-11-09 15:02 | MR ---
MRI brain Technique: T1 sagittal; T1, T2, T2 FLAIR and diffusion axial; T2 gradient echo coronal and T1-weighted coronal images were obtained. Comparison: Previous head CT study of 11/09/18. Previous MRI brain of 11/14/14 is available. Findings: Ventricles along with basal cisterns and sulci over the convexities are moderately prominent. Diffuse areas of increased signal seen within the periventricular and subcortical white matter. Findings are compatible with small vessel ischemic demyelination change. Small old infarct is noted within the posterior right occipital cortex. There is an area of restricted diffusion causing increased signal within the posterior right frontal lobe compatible with fairly recent white matter infarct. Normal signal void seen within the major cerebral arteries within the skull base. No other diffusion abnormalities are seen. No midline shift or mass effect is seen. Incidental note of small retention cyst within the inferior left maxillary sinus. Impression: 1. Senescent change as noted above. 2. Small acute diffusion abnormality compatible with relatively recent white matter infarct within the posterior right frontal region. Diagnostic code #3 I agree with preliminary report from [facility], finalized on 11/09/18, 1:01 PM Central Time
[2018-11-09] MEDS: PALIPERIDONE 6 MG PO SCH (15:25)
[2018-11-09] MEDS ORDERED: Hydrocortisone Acetate 25 MG Supp RECTAL PRN (16:28)
[2018-11-09] MEDS ORDERED: Atropine 1% Ophth Soln 5 ML BOTTLE SL PRN (17:15)
[2018-11-09] MEDS: Insulin Lispro 100 UNIT/ML 10 ML VIAL SUBCUT SCH ×2 (17:28→21:45)
[2018-11-09] MEDS ORDERED: Haloperidol Lactate 5 MG/ML SDV IVPUSH PRN (17:34)
[2018-11-09] MEDS: Aspirin 325 MG Tab.EC PO SCH (17:49)
[2018-11-09] MEDS ORDERED: Albuterol/Ipratropium 3.0-0.5 MG/3 ML Neb Soln NEB SCH (18:00)
[2018-11-09] MEDS ORDERED: PALIPERIDONE 6 MG PO SCH (18:15)
[2018-11-09] MEDS: ClonazePAM 1 MG Tab PO SCH (18:24)
[2018-11-09] MEDS: Donepezil 10 MG Tab PO SCH (18:25)
[2018-11-09] MEDS: PARoxetine 20 MG Tab PO SCH (18:27)
[2018-11-09] MEDS: Albuterol/Ipratropium 3.0-0.5 MG/3 ML Neb Soln NEB SCH (18:31)
[2018-11-09] MEDS: Budesonide 0.5 MG/2 ML Neb Susp NEB SCH (20:49)
[2018-11-09] MEDS ORDERED: Budesonide 0.5 MG/2 ML Neb Susp NEB SCH (21:00)
[2018-11-09] MEDS: Carboxymethylcellulose Sodium 1% Ophth Gel 15 ML Bottle EYEBOTH SCH (21:50)
[2018-11-10] MEDS: Albuterol/Ipratropium 3.0-0.5 MG/3 ML Neb Soln NEB SCH ×4 (02:24→20:19)
[2018-11-10] MEDS ORDERED: Nitroglycerin 0.2 MG/HR Transdermal Patch TRDERM SCH (06:00)
--- NOTE | 2018-11-10 06:24 | PCM.PN ---
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 She is resting in the room and her son is napping on the couch. She has no concerns or complaints. Video swallow today was excellent and no concerns were raised. She has been working with PT/OT, which should continue at SNF. Hopeful for discharge tomorrow if she remains stable. No nursing concerns. Functional Status: Reports: Pain Controlled, Tolerating Diet, Urinating. Denies : Ambulating, New Symptoms - Review of Systems General: Reports: No Symptoms. Denies: Fever, Weakness, Fatigue, Malaise HEENT: Reports: No Symptoms. Denies: Eye Pain, Sore Throat Pulmonary: Reports: No Symptoms. Denies: Shortness of Breath, Cough, Sputum, Wheezing Cardiovascular: Reports: No Symptoms. Denies: Chest Pain, Palpitations, Dyspnea on Exertion, Edema Gastrointestinal: Reports: No Symptoms. Denies: Abdominal Pain, Constipation, Diarrhea, Nausea, Vomiting Genitourinary: Reports: No Symptoms. Denies: Pain Musculoskeletal: Reports: No Symptoms Skin: Reports: No Symptoms Neurological: Reports: No Symptoms, Pre-Existing Deficit, Trouble Speaking ( chronic ), Difficulty Walking, Weakness, Gait Disturbance. Denies: Dizziness, Headache, Numbness, Seizure, Syncope, Tingling, Change in Speech Psychiatric: Reports: No Symptoms - Patient Data Vitals - Most Recent: Last Vital Signs Temp 97.5 F 11/09/18 21:04 Pulse 73 11/09/18 21:04 Resp 20 11/09/18 21:04 BP 149/107 H 11/09/18 21:04 Pulse Ox 96 11/10/18 02:22 Weight - Most Recent: 175 lb I&O - Last 24 Hours: Intake & Output 11/09/18 11/09/18 11/10/18 14:59 22:59 06:59 Intake Total 120 744 Balance 120 744 Lab Results Last 24 Hours: Laboratory Results - last 24 hr 11/09/18 11/09/18 11/09/18 Range/Units 06:51 07:05 07:05 WBC 3.91 L (3.98-10.04) K/mm3 RBC 4.08 (3.98-5.22) M/mm3 Hgb 10.9 L (11.2-15.7) gm/L Hct 37.0 (34.1-44.9) % MCV 90.7 (79.4-94.8) fl MCH 26.7 (25.6-32.2) pg MCHC 29.5 L (32.2-35.5) g/dl RDW Std Deviation 50.8 H (36.4-46.3) fL Plt Count 111 L (182-369) K/mm3 MPV 11.3 (9.4-12.3) fl Neut % (Auto) 64.9 (34.0-71.1) % Lymph % (Auto) 24.6 (19.3-51.7) % [place] % (Auto) 8.2 (4.7-12.5) % Eos % (Auto) 1.3 (0.7-5.8) Baso % (Auto) 0.5 (0.1-1.2) % Neut # (Auto) 2.54 (1.56-6.13) K/mm3 Lymph # (Auto) 0.96 L (1.18-3.74) K/mm3 [place] # (Auto) 0.32 (0.24-0.36) K/mm3 Eos # (Auto) 0.05 (0.04-0.36) K/mm3 Baso # (Auto) 0.02 (0.01-0.08) K/mm3 Manual Slide Review Abnormal smear PT 11.4 (9.5-12.1) SECONDS INR 1.05 Sodium (136-145) mEq/L Potassium (3.5-5.1) mEq/L Chloride (98-107) mEq/L Carbon Dioxide (21-32) mEq/L Anion Gap (5-15) BUN (7-18) mg/dL Creatinine (0.55-1.02) mg/dL Est Cr Clr Drug Dosing Estimated GFR (MDRD) (>60) mL/min BUN/Creatinine Ratio (14-18) Glucose (83-115) mg/dL POC Glucose 83 (83-110) mg/dL Calcium (8.5-10.1) mg/dL Total Bilirubin (0.2-1.0) mg/dL AST (15-37) U/L ALT (14-59) U/L Alkaline Phosphatase (46-116) U/L Total Protein (6.4-8.2) g/dl Albumin (3.4-5.0) g/dl Globulin gm/dL Albumin/Globulin Ratio (1-2) 11/09/18 11/09/18 11/09/18 Range/Units 07:05 17:09 21:43 WBC (3.98-10.04) K/mm3 RBC (3.98-5.22) M/mm3 Hgb (11.2-15.7) gm/L Hct (34.1-44.9) % MCV (79.4-94.8) fl MCH (25.6-32.2) pg MCHC (32.2-35.5) g/dl RDW Std Deviation (36.4-46.3) fL Plt Count (182-369) K/mm3 MPV (9.4-12.3) fl Neut % (Auto) (34.0-71.1) % Lymph % (Auto) (19.3-51.7) % [place] % (Auto) (4.7-12.5) % Eos % (Auto) (0.7-5.8) Baso % (Auto) (0.1-1.2) % Neut # (Auto) (1.56-6.13) K/mm3 Lymph # (Auto) (1.18-3.74) K/mm3 [place] # (Auto) (0.24-0.36) K/mm3 Eos # (Auto) (0.04-0.36) K/mm3 Baso # (Auto) (0.01-0.08) K/mm3 Manual Slide Review PT (9.5-12.1) SECONDS INR Sodium 144 (136-145) mEq/L Potassium 3.9 (3.5-5.1) mEq/L Chloride 105 (98-107) mEq/L Carbon Dioxide 32 (21-32) mEq/L Anion Gap 10.9 (5-15) BUN 18 (7-18) mg/dL Creatinine 0.9 (0.55-1.02) mg/dL Est Cr Clr Drug Dosing TNP Estimated GFR (MDRD) 60 (>60) mL/min BUN/Creatinine Ratio 20.0 H (14-18) Glucose 87 (83-115) mg/dL POC Glucose 136 H 113 H (83-110) mg/dL Calcium 9.3 (8.5-10.1) mg/dL Total Bilirubin 0.4 (0.2-1.0) mg/dL AST 20 (15-37) U/L ALT 18 (14-59) U/L Alkaline Phosphatase 37 L (46-116) U/L Total Protein 7.2 (6.4-8.2) g/dl Albumin 3.6 (3.4-5.0) g/dl Globulin 3.6 gm/dL Albumin/Globulin Ratio 1.0 (1-2) 11/10/18 Range/Units 05:52 WBC (3.98-10.04) K/mm3 RBC (3.98-5.22) M/mm3 Hgb (11.2-15.7) gm/L Hct (34.1-44.9) % MCV (79.4-94.8) fl MCH (25.6-32.2) pg MCHC (32.2-35.5) g/dl RDW Std Deviation (36.4-46.3) fL Plt Count (182-369) K/mm3 MPV (9.4-12.3) fl Neut % (Auto) (34.0-71.1) % Lymph % (Auto) (19.3-51.7) % [place] % (Auto) (4.7-12.5) % Eos % (Auto) (0.7-5.8) Baso % (Auto) (0.1-1.2) % Neut # (Auto) (1.56-6.13) K/mm3 Lymph # (Auto) (1.18-3.74) K/mm3 [place] # (Auto) (0.24-0.36) K/mm3 Eos # (Auto) (0.04-0.36) K/mm3 Baso # (Auto) (0.01-0.08) K/mm3 Manual Slide Review PT (9.5-12.1) SECONDS INR Sodium (136-145) mEq/L Potassium (3.5-5.1) mEq/L Chloride (98-107) mEq/L Carbon Dioxide (21-32) mEq/L Anion Gap (5-15) BUN (7-18) mg/dL Creatinine (0.55-1.02) mg/dL Est Cr Clr Drug Dosing Estimated GFR (MDRD) (>60) mL/min BUN/Creatinine Ratio (14-18) Glucose (83-115) mg/dL POC Glucose 120 H (83-110) mg/dL Calcium (8.5-10.1) mg/dL Total Bilirubin (0.2-1.0) mg/dL AST (15-37) U/L ALT (14-59) U/L Alkaline Phosphatase (46-116) U/L Total Protein (6.4-8.2) g/dl Albumin (3.4-5.0) g/dl Globulin gm/dL Albumin/Globulin Ratio (1-2) Med Orders - Current: Current Medications Acetaminophen (Tylenol) 650 mg PO Q4H PRN PRN Reason: Pain (Mild 1-3)/fever Albuterol/Ipratropium (Duoneb 3.0-0.5 Mg/3 Ml) 3 ml NEB Q6HRRT [facility] Last Admin: 11/10/18 02:24 Dose: 3 ml Artificial Tears (Refresh Liquigel 1%) 0 ml EYEBOTH TID [facility] Last Admin: 11/09/18 21:50 Dose: Not Given Aspirin (Ecotrin) 325 mg PO DAILY [facility] Last Admin: 11/09/18 17:49 Dose: 325 mg Atropine Sulfate (Atropine 1% Ophth Soln) 0 ml SL Q8H PRN PRN Reason: EXCESSIVE DROOLING Budesonide (Pulmicort) 0.5 mg NEB BID [facility] Last Admin: 11/09/18 20:49 Dose: 0.5 mg Clonazepam (Klonopin) 1 mg PO BID [facility] Last Admin: 11/09/18 18:24 Dose: 1 mg Donepezil HCl (Aricept) 10 mg PO BID [facility] Last Admin: 11/09/18 18:25 Dose: 10 mg Haloperidol Lactate (Haldol) 2 mg IVPUSH Q4HR PRN PRN Reason: Anxiety Hydralazine HCl (Apresoline) 10 mg IVPUSH Q6H PRN PRN Reason: Hypertension Hydrocortisone Acetate (Anucort-Hc) 25 mg RECTAL BID PRN PRN Reason: Hemorrhoids Dextrose/Sodium Chloride (Dextrose 5%-Normal Saline) 1,000 mls @ 50 mls/hr IV ASDIRECTED [facility] Last Admin: 11/09/18 15:25 Dose: 50 mls/hr Insulin Human Lispro (Humalog) 0 unit SUBCUT QIDACANDBED [facility]; Protocol Last Admin: 11/09/18 21:45 Dose: Not Given Metoprolol Tartrate (Lopressor) 5 mg IVPUSH Q4H PRN PRN Reason: Tachycardia Miscellaneous Information (Remove Patch) 1 ea TRDERM DAILY@1800 [facility] Nitroglycerin (Nitro-Dur 0.2 Mg/Hr) 0.2 mg TRDERM DAILY@0600 [facility] Ondansetron HCl (Zofran Odt) 4 mg PO Q6H PRN PRN Reason: nausea, able to take PO Ondansetron HCl (Zofran) 4 mg IV Q6H PRN PRN Reason: Nausea/Vomiting Paroxetine HCl (Paxil) 40 mg PO BEDTIME [facility] Last Admin: 11/09/18 18:27 Dose: 40 mg Paliperdone 6 Mg (Tablet Ptom) 0 each PO DAILY [facility] Last Admin: 11/09/18 15:25 Dose: 1 each Sodium Chloride (Saline Flush) 10 ml FLUSH ASDIRECTED PRN PRN Reason: Keep Vein Open Last Admin: 11/09/18 07:04 Dose: 10 ml Discontinued Medications Albuterol/Ipratropium (Duoneb 3.0-0.5 Mg/3 Ml) 3 ml NEB Q6HR [facility] Budesonide (Pulmicort) 0.5 mg NEB BIDRT [facility] Metoprolol Tartrate (Lopressor) 5 mg IVPUSH ONETIME ONE Stop: 11/09/18 11:54 Last Admin: 11/09/18 12:01 Dose: 5 mg Non-Formulary Medication (Paliperidone [Paliperidone Er]) 6 mg PO DAILY [facility] - Exam Quality Assessment: Supplemental Oxygen, DVT Prophylaxis General: Alert, Cooperative, No Acute Distress HEENT: Pupils Equal, Pupils Reactive, EOMI, Mucous Membr. Moist/[place] Neck: Supple, Trachea Midline Lungs: Clear to Auscultation, Normal Respiratory Effort Cardiovascular: Regular Rate, Regular Rhythm GI/Abdominal Exam: Normal Bowel Sounds, Soft, Non-Tender, No Distention, No Abnormal Bruit (Female) Exam: Deferred Back Exam: Normal Inspection, Full Range of Motion Extremities: Normal Inspection, Normal Range of Motion, Non-Tender, No Pedal Edema, Normal Capillary Refill Peripheral Pulses: 2+: Radial (L), Radial (R), Dorsalis Pedis (L), Dorsalis Pedis (R) Skin: Warm, Dry, Intact Neurological: No New Focal Deficit, Sensation Intact. No: Normal Gait, Normal Speech, Strength Equal Bilateral Psy/Mental Status: Alert - Problem List & Annotations (1) Stroke SNOMED Code(s): 354279996 Code(s): I63.9 - CEREBRAL INFARCTION, UNSPECIFIED Status: Acute Priority : High Current Visit: Yes Qualifiers: CVA mechanism: unspecified Qualified Code(s): I63.9 - Cerebral infarction, unspecified (2) CAD (coronary artery disease) SNOMED Code(s): 31881531 Code(s): I25.10 - ATHSCL HEART DISEASE OF [place] CORONARY ARTERY W/O ANG PCTRS Status: Chronic Priority: Medium Current Visit: Yes Qualifiers: Coronary Disease-Associated Artery/Lesion type: unspecified vessel or lesion type [place] vs. transplanted heart: [place] heart Associated angina: angina presence unspecified Qualified Code(s): I25.10 - Atherosclerotic heart disease of [place] coronary artery without angina pectoris (3) COPD (chronic obstructive pulmonary disease) SNOMED Code(s): 45126123 Code(s): J44.9 - CHRONIC OBSTRUCTIVE PULMONARY DISEASE, UNSPECIFIED Status : Chronic Priority: Medium Current Visit: No Qualifiers: COPD type: unspecified COPD Qualified Code(s): J44.9 - Chronic obstructive pulmonary disease, unspecified (4) HTN (hypertension) SNOMED Code(s): 08164015 Code(s): I10 - ESSENTIAL (PRIMARY) HYPERTENSION Status: Chronic Priority : Medium Current Visit: No Qualifiers: Hypertension type: unspecified Qualified Code(s): I10 - Essential (primary ) hypertension (5) HLD (hyperlipidemia) SNOMED Code(s): 76574717 Code(s): E78.5 - HYPERLIPIDEMIA, UNSPECIFIED Status: Chronic Priority: Medium Current Visit: No Qualifiers: Hyperlipidemia type: unspecified Qualified Code(s): E78.5 - Hyperlipidemia , unspecified (6) GERD (gastroesophageal reflux disease) SNOMED Code(s): 507036779 Code(s): K21.9 - GASTRO-ESOPHAGEAL REFLUX DISEASE WITHOUT ESOPHAGITIS Status: Chronic Priority: Low Current Visit: No Qualifiers: Esophagitis presence: esophagitis presence not specified Qualified Code(s) : K21.9 - Gastro-esophageal reflux disease without esophagitis - Problem List Review Problem List Initiated/Reviewed/Updated: Yes - My Orders Last 24 Hours: My Active Orders 11/09/18 12:36 Height and Weight [RC] 04 Up to Chair [RC] TIDAC VTE/DVT Education [RC] DAILY Vital Signs [RC] Q4HR Consult to Case Management/Harmonic Analyst [CONS] Routine Consult to Speech Language Pathology [HAND MITER OPERATOR Evaluation and Treatment] [CONS] Routine Consult to Spiritual Care [CONS] Routine OT Evaluation and Treatment [CONS] Routine PT Evaluation and Treatment [CONS] Routine Acetaminophen [Tylenol] 650 mg PO Q4H PRN Ondansetron [Zofran ODT] 4 mg PO Q6H PRN Ondansetron [Zofran] 4 mg IV Q6H PRN Resuscitation Status Routine 11/09/18 12:37 Intake and Output [RC] 04,16 Pulse Oximetry [RC] PRN Sequential Compression Device [OM.PC] Per Unit Routine 11/09/18 12:39 Neuro Check [RC] 18,00,06,12 Metoprolol Tartrate [Lopressor] 5 mg IVPUSH Q4H PRN hydrALAZINE [Apresoline] 10 mg IVPUSH Q6H PRN 11/09/18 12:45 Dextrose 5%-0.9% NaCl [Dextrose 5%-Normal Saline] 1,000 ml IV ASDIRECTED 11/09/18 16:15 Aspirin [Ecotrin] 325 mg PO DAILY 11/09/18 17:00 Insulin Lispro [HumaLOG] See Protocol SUBCUT QIDACANDBED 11/10/18 05:11 A1C [GLYCOSYLATED HEMOGLOBIN,HGBA1C] [CHEM] Routine BASIC METABOLIC PANEL,BMP [CHEM] AM CBC WITH AUTO DIFF [HEME] AM LIPID PANEL [CHEM] Routine MAGNESIUM [CHEM] AM 11/11/18 05:11 BASIC METABOLIC PANEL,BMP [CHEM] AM CBC WITH AUTO DIFF [HEME] AM MAGNESIUM [CHEM] AM 11/12/18 05:11 BASIC METABOLIC PANEL,BMP [CHEM] AM CBC WITH AUTO DIFF [HEME] AM MAGNESIUM [CHEM] AM 11/13/18 05:11 BASIC METABOLIC PANEL,BMP [CHEM] AM CBC WITH AUTO DIFF [HEME] AM MAGNESIUM [CHEM] AM - Plan Plan:: I/P: Acute: CVA -Risk factors: Hx/o prior TIAs, CVA, HLD, HTN, Type II DM -Family reports prior workup for carotid artery occlusion - were reportedly told not much more can be done -Prior CVA resulting in left sided facial droop and dysartria -Reportedly told SNF staff she felt weak on the left side yesterday evening with normal neuro check then -Awoke to left sided hemiparesis -Patient and family/POA refusing transfer and further workup, wants rehabilitation evaluation only -Brain CT in ED: Moderately severe senescent change; Nothing acute -MRI obtained 11/09/18: Restricted diffusion in posterior right frontal lobe 1. Small area of acute to early subacute infarct in right posterior frontal lobe 2. Atrophy, chronic infarcts, and microvascular disease -Q6H neuro checks -A1C 4.9 -Lipid panel: Triglycerides 154, total cholesterol 152, LDL 95, HDL 36.0 -NPO for now--> advance to NDD3, thin liquids, no straws per HAND MITER OPERATOR -HAND MITER OPERATOR swallow evaluation: No concerns -D5NS while NPO, Monitor blood sugars -> discontinue -Permissive hypertension -ASA 325mg daily Hold 81mg and plavix -PT/OT Chronic: Impaired vision CAD hypertension COPD with chronic O2 use chronic constipation GERD urinary incontinence overactive bladder chronic back pain osteoporosis generalized weakness on the left side CVA polyneuropathy dyskinesia drug-induced dyskinesia anxiety dementia depression type II DM hypomagnesemia deficiency of vitamin B12 benign lipomatosus neoplasm of skin Plan: Admit to medical floor on telemetry CM/SW for discharge planning -> [facility] Home medications as ordered Other orders as indicated above Routine AM labs DVT/PE prophylaxis: Lovenox Spiritual care consult Code status: DNR/DNI; PCP: Dr. Daniels Confirmed code status with patient and daugher/POA on 11/09/18.
[2018-11-10] MEDS: Insulin Lispro 100 UNIT/ML 10 ML VIAL SUBCUT SCH ×4 (06:43→22:00)
[2018-11-10 07:14] LABS: HEMOGLOBIN A1C 4.9 % (4.50-6.20)
[2018-11-10] MEDS ORDERED: Barium Sulfate 60% w/v Susp 355 ML Bottle PO ONE (08:30)
[2018-11-10] MEDS ORDERED: Barium Sulfate 60% w/w Esophageal Crm 454 GM Tube PO ONE (08:30)
[2018-11-10] MEDS: Budesonide 0.5 MG/2 ML Neb Susp NEB SCH ×2 (09:17→20:18)
[2018-11-10] MEDS: Donepezil 10 MG Tab PO SCH ×2 (10:02→21:25)
[2018-11-10] MEDS: PALIPERIDONE 6 MG PO SCH (10:03)
[2018-11-10] MEDS: ClonazePAM 1 MG Tab PO SCH ×2 (10:03→21:24)
[2018-11-10] MEDS: Aspirin 325 MG Tab.EC PO SCH (10:03)
[2018-11-10] MEDS: Carboxymethylcellulose Sodium 1% Ophth Gel 15 ML Bottle EYEBOTH SCH ×3 (10:19→21:23)
[2018-11-10] MEDS ORDERED: Nitroglycerin 0.4 MG Tab.SL SL PRN (11:32)
[2018-11-10] MEDS ORDERED: Calcium Carbonate 500 MG Tab.Chew PO PRN (11:32)
[2018-11-10] MEDS: Enoxaparin 40 MG/0.4 ML Syringe SUBCUT SCH (13:44)
[2018-11-10] MEDS: Acetaminophen 325 MG Tab PO PRN (17:10)
[2018-11-10] MEDS ORDERED: Fenofibrate Nanocrystallized 145 MG Tab PO SCH (21:00)
[2018-11-10] MEDS ORDERED: Levothyroxine 50 MCG Tab PO SCH (21:00)
[2018-11-10] MEDS ORDERED: MIRABEGRON 25 MG PO SCH (21:00)
[2018-11-10] MEDS: Docusate Sodium 100 MG Cap PO SCH (21:24)
[2018-11-10] MEDS: Gabapentin 100 MG Cap PO SCH (21:25)
[2018-11-10] MEDS: Potassium Chloride 20 MEQ Tab.ER PO SCH (21:26)
[2018-11-10] MEDS: PARoxetine 20 MG Tab PO SCH (21:26)
[2018-11-10] MEDS: Chlorhexidine Gluconate 0.12% Oral Rinse 118 ML Bottle MM SCH (21:27)
[2018-11-11] MEDS: Acetaminophen 325 MG Tab PO PRN (01:03)
[2018-11-11] MEDS: Albuterol/Ipratropium 3.0-0.5 MG/3 ML Neb Soln NEB SCH ×2 (02:26→08:16)
--- NOTE | 2018-11-11 06:28 | PCM.DCSUM1 ---
Discharge Summary - Hospital Course HPI Initial Comments: Brie Zhong is an 83yo female patient who presented to our ED early this morning via ambulance from [facility] with left-sided paralysis. She was last seen well around approximately 9 hours prior to coming to the ED. His reported around 9 PM yesterday evening she complained to staff that she was weak on her left side and nursing staff perform a neuro exam which was unremarkable. Upon awakening she is completely paralyzed on her left side. She has left facial droop and dysarthria, however family reports this is chronic for her from a prior stroke and does not appear any worse at this time. In the ED she denied any headache, nausea, or vomiting. She does have a history of hypertension, prior TIAs and CVA. In the ED temperature 36.2 Celsius. Pulse 73. Respirations 22. Blood pressure 207/93. Pulse ox 100%. Labs were obtained: WBC is low at 3.91. Hemoglobin low at 10.9. Hematocrit 37.0. She has normocytic. Platelet are low at 111,000. Neutrophils are normal at 54.9. PT 11.4. INR 1.05. Sodium is 144. Potassium 3.9. Chloride 105. Carbon dioxide 32. Anion gap 10.9. BUN is 19. Creatinine 0.9. EGFR is 60. Glucose is 87. Calcium 9.3. Bilirubin 0.4. AST is 20, ALT 18, alkaline phosphatase low at 37. Protein is 7.2. Albumin 3.6. ET scan of the head is obtained and interpreted by Dr. Wyatt as "1. Senescent changes which is moderate in severity. Findings are fairly stable from previous exam. Nothing acute is identified at this time. Please correlate if MRI is needed to further evaluate patient's symptoms. Twelve-lead EKG is obtained and interpreted by the ED provider as sinus rhythm with 1 PVC at 75 bpm. There is no ST segment abnormalities and no change from . MRI is ordered and interpreted by the rad as "1. Small area of acute to early subacute infarct in right posterior frontal lobe. 2. Atrophy, chronic infarcts, and microvascular disease." Abnormalities noted to be 14 mm and located in the posterior right frontal lobe. No acute intracranial hemorrhages again noted. She carries a history of: GERD vision, CAD, hypertension, COPD, chronic O2 use, chronic constipation, GERD, urinary incontinence, overactive bladder, chronic back pain, osteoporosis, generalized weakness on the left side, CVA, polyneuropathy, dyskinesia, drug-induced dyskinesia, anxiety, dementia, depression, type II DM, hypomagnesemia, deficiency of vitamin B12, benign lipoma tomos neoplasm of skin. She has never a smoker. She was subsequently admitted to the medical floor on telemetry for further CVA rehabilitation. She is a DNR/DNI. CODE STATUS was confirmed by patient and daughter who is reportedly POA. Diagnosis: Stroke: Yes Modified [place] Scale: Mod.Sev.Disability ;Unable to Walk/Attend Bodily Needs W/ O Assistance Modified [place] Scale Score: 4 - Discharge Data Discharge Date: 11/11/18 (Admit date: 11/09/18) Discharge Disposition: DC/Tfer to SNF 03 Condition: Good - Discharge Diagnosis/Problem(s) (1) Stroke SNOMED Code(s): 083802587 ICD Code: I63.9 - CEREBRAL INFARCTION, UNSPECIFIED Status: Acute Priority : High Current Visit: Yes Qualifiers: CVA mechanism: unspecified Qualified Code(s): I63.9 - Cerebral infarction, unspecified (2) CAD (coronary artery disease) SNOMED Code(s): 56466474 ICD Code: I25.10 - ATHSCL HEART DISEASE OF [place] CORONARY ARTERY W/O ANG PCTRS Status: Chronic Priority: Medium Current Visit: Yes Qualifiers: Coronary Disease-Associated Artery/Lesion type: unspecified vessel or lesion type [place] vs. transplanted heart: [place] heart Associated angina: angina presence unspecified Qualified Code(s): I25.10 - Atherosclerotic heart disease of [place] coronary artery without angina pectoris (3) COPD (chronic obstructive pulmonary disease) SNOMED Code(s): 31744585 ICD Code: J44.9 - CHRONIC OBSTRUCTIVE PULMONARY DISEASE, UNSPECIFIED Status : Chronic Priority: Medium Current Visit: No Qualifiers: COPD type: unspecified COPD Qualified Code(s): J44.9 - Chronic obstructive pulmonary disease, unspecified (4) HTN (hypertension) SNOMED Code(s): 83560548 ICD Code: I10 - ESSENTIAL (PRIMARY) HYPERTENSION Status: Chronic Priority : Medium Current Visit: No Qualifiers: Hypertension type: unspecified Qualified Code(s): I10 - Essential (primary ) hypertension (5) HLD (hyperlipidemia) SNOMED Code(s): 06618659 ICD Code: E78.5 - HYPERLIPIDEMIA, UNSPECIFIED Status: Chronic Priority: Medium Current Visit: No Qualifiers: Hyperlipidemia type: unspecified Qualified Code(s): E78.5 - Hyperlipidemia , unspecified (6) GERD (gastroesophageal reflux disease) SNOMED Code(s): 852179837 ICD Code: K21.9 - GASTRO-ESOPHAGEAL REFLUX DISEASE WITHOUT ESOPHAGITIS Status: Chronic Priority: Low Current Visit: No Qualifiers: Esophagitis presence: esophagitis presence not specified Qualified Code(s) : K21.9 - Gastro-esophageal reflux disease without esophagitis - Patient Summary/Data Consults: Consultations 11/09/18 12:36 Consult to Case Management/Securities Attorney [CONS] Routine Consult to Speech Language Pathology [VEGETABLE I FARMWORKER Evaluation and Treatment] [CONS] Routine Consult to Spiritual Care [CONS] Routine OT Evaluation and Treatment [CONS] Routine PT Evaluation and Treatment [CONS] Routine Labs Pending at D/C: None Recommended Follow-up Testing/Procedures: Follow-up with PCP within 7-10 days of discharge. Hospital Course: I/P: Acute: CVA -Risk factors: Hx/o prior TIAs, CVA, HLD, HTN, Type II DM -Family reports prior workup for carotid artery occlusion - were reportedly told not much more can be done -Prior CVA resulting in left sided facial droop and dysartria -Reportedly told SNF staff she felt weak on the left side yesterday evening with normal neuro check then -Awoke to left sided hemiparesis -Patient and family/POA refusing transfer and further workup, wants rehabilitation evaluation only -Brain CT in ED: Moderately severe senescent change; Nothing acute -MRI obtained 11/09/18: Restricted diffusion in posterior right frontal lobe 1. Small area of acute to early subacute infarct in right posterior frontal lobe 2. Atrophy, chronic infarcts, and microvascular disease -Q6H neuro checks -A1C 4.9 -Lipid panel: Triglycerides 154, total cholesterol 152, LDL 95, HDL 36.0 -NPO for now--> advance to NDD3, thin liquids, no straws per VEGETABLE I FARMWORKER -VEGETABLE I FARMWORKER swallow evaluation: No concerns -D5NS while NPO, Monitor blood sugars -> discontinue -Permissive hypertension -ASA 325mg daily Hold 81mg ASA and plavix -PT/OT Chronic: Impaired vision CAD hypertension COPD with chronic O2 use chronic constipation GERD urinary incontinence overactive bladder chronic back pain osteoporosis generalized weakness on the left side CVA polyneuropathy dyskinesia drug-induced dyskinesia anxiety dementia depression type II DM hypomagnesemia deficiency of vitamin B12 benign lipomatosus neoplasm of skin Plan: Admit to medical floor on telemetry CM/SW for discharge planning -> from [facility] Home medications as ordered Other orders as indicated above Routine AM labs DVT/PE prophylaxis: [facility] Spiritual care consult Code status: DNR/DNI; PCP: Dr. Daniels Confirmed code status with patient and chuy/RICH on 11/09/18. Overall brie did ok. She presented to our ED from [facility] with left sided hemiparesis. CT of her head was negative. She has had prior CVAs and TIA which have resulted in dysarthria and occasional drooling. Family has reported throughout her stay that her speech and facial appearance remain the same as prior. Family and the patient were very clear that they did not want further workup or treatment for this last CVA and they wanted her admitted for initiation of rehabilitation and further VEGETABLE I FARMWORKER workup. They do not want her transferred for acute care or rehabilitation. Family and patient were in agreement for MRI. MRI reveled a fairly new appearing infarct in the posterior right frontal region measuring 1.4cm. She was also noted to have atrophy, chronic infarcts, and microvascular disease. VEGETABLE I FARMWORKER did evaluate her and she was taken for a video swallow evaluation. This showed no concerns and she was improved to an NDD3 diet with thin liquids and no straws. She continued to have essentially no movement over the left side of her body. Sensation remained intact throughout all extremities however. A1C and lipid panel were obtained as above and looked good. She worked with PT/OT and this should continue at SNF. Her prior 81mg ASA was held along with her plavix and she was placed on 325mg ASA daily. She should continue this for 14 days at discharge and then resume her normal plavix and ASA as before. She has known carotid artery occlusion and family report Brie has seen a vascular surgeon for this and they were told they really have nothing more to offer her. She will be discharged back today to [facility]. She should continue aspiration precautions and PT/OT as mentioned above. She should hold her usual ASA and Plavix until 10/26/18, although this can change at the discretion of the PCP. All other home medications have been continued. - Patient Instructions Diet: Heart Healthy Diet Diet, Other: NDD3 diet, thin liquids, NO STRAWS Activity: As Tolerated Driving: Do Not Drive Showering/Bathing: May Shower Notify Provider of: Fever, Increased Pain, Nausea and/or Vomiting (worsening wekness, changes in speach, severe headache. ) - Discharge Plan *PRESCRIPTION DRUG MONITORING PROGRAM REVIEWED*: Not Applicable *COPY OF PRESCRIPTION DRUG MONITORING REPORT IN PATIENT PHILIP: Not Applicable Prescriptions/Med Rec: Aspirin [Ecotrin] 325 mg PO DAILY #14 tab.ec Home Medications: Home Meds . [Unable To Obtain] 3 liter INH ASDIRECTED MDD keep sat >90% 11/09/18 [History] Acetaminophen [Tylenol] 325 mg PO Q6H PRN 11/09/18 [History] Atenolol 25 mg PO DAILY 11/09/18 [History] Atropine Sulfate In 0.9% NaCl [Atropine 0.01%-Ns Eye Drops] 1 drop SL Q8H PRN [History] Budesonide [Pulmicort] 0.5 mg IH BID 11/09/18 [History] Calcium Carbonate [Tums] 2 tab PO Q4H PRN 11/09/18 [History] Carboxymethylcellulose Sodium [Refresh Tears 0.5%] 2 drop EYEBOTH TID 11/09/18 [ History] Chlorhexidine Gluconate [Peridex] 15 ml MM BID 11/09/18 [History] Cyanocobalamin (Vitamin B-12) [Vitamin B-12] 1,000 mcg IM ASDIRECTED 11/09/18 [ History] Docusate Sodium [Colace] 100 mg PO BID 11/09/18 [History] Donepezil HCl [Aricept] 10 mg PO BID 11/09/18 [History] Fenofibrate Nanocrystallized [Tricor] 145 mg PO BEDTIME 11/09/18 [History] Gabapentin [Neurontin] 200 mg PO BID 11/09/18 [History] Glimepiride [Amaryl] 1 mg PO DAILY 11/09/18 [History] Hydrocortisone Acetate 25 mg RC BID PRN 11/09/18 [History] Ibuprofen [Motrin] 400 mg PO Q8H PRN 11/09/18 [History] Ipratropium/Albuterol Sulfate [Iprat-Albut 0.5-3(2.5) mg/3 ml] 3 ml IH Q6HR [History] Isosorbide Mononitrate [Imdur] 30 mg PO DAILY 11/09/18 [History] Levothyroxine [Synthroid] 50 mcg PO BEDTIME 11/09/18 [History] Loperamide HCl [Imodium A-D] 2 mg PO DAILY PRN MDD 4 tabs 11/09/18 [History] Losartan [Cozaar] 25 mg PO DAILY 11/09/18 [History] Magnesium Oxide 400 mg PO DAILY 11/09/18 [History] Mirabegron [Myrbetriq] 25 mg PO BEDTIME 11/09/18 [History] Nitroglycerin [Nitrostat] 0.4 mg SL DAILY PRN 11/09/18 [History] Ondansetron [Zofran] 4 mg PO Q6H PRN 11/09/18 [History] PARoxetine HCl [Paxil] 40 mg PO BEDTIME 11/09/18 [History] Paliperidone [Paliperidone ER] 6 mg PO DAILY 11/09/18 [History] Pantoprazole Sodium [Protonix] 40 mg PO DAILY 11/09/18 [History] Polyethylene Glycol 3350 [MiraLAX] 17 gm PO DAILY PRN 11/09/18 [History] Potassium Chloride 20 meq PO BID 11/09/18 [History] Vit A,C & E/Lutein/Minerals [Healthy Eyes] 1 tab PO DAILY 11/09/18 [History] atorvaSTATin [Lipitor] 10 mg PO DAILY 11/09/18 [History] clonazePAM [Clonazepam] 1 mg PO BID 11/09/18 [History] metFORMIN [Glucophage XR] 500 mg PO DAILY 11/09/18 [History] traMADol [Ultram] 50 mg PO BEDTIME 11/09/18 [History] Aspirin [Adult Aspirin] 81 mg PO DAILY #0 11/11/18 [Rx] Aspirin [Ecotrin] 325 mg PO DAILY #14 tab.ec 11/11/18 [Rx] Clopidogrel [Plavix] 75 mg PO DAILY #0 11/11/18 [Rx] Oxygen Therapy Mode: Nasal Cannula Oxygen Flow Rate (L/min): 3 Maintain SpO2% greater than: 90 Referrals: Juan Carlos Daniels MD [Primary Care Provider] - - Discharge Summary/Plan Comment DC Time >30 min.: Yes (45 mins ) - General Info Date of Service: 11/11/18 Admission Dx/Problem (Free Text: Admission Diagnosis/Problem Admission Diagnosis/Problem 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 She has been up in the chair and is being moved to the bed shortly. She is doing very well. No patient, family, or nursing concerns. Labs remain stable. She will be discharged back to [facility] today. Functional Status: Reports: Pain Controlled, Tolerating Diet, Ambulating, Urinating. Denies: New Symptoms - Review of Systems General: Reports: No Symptoms. Denies: Fever, Fatigue, Malaise, Chills HEENT: Reports: No Symptoms. Denies: Headaches, Sore Throat Pulmonary: Reports: No Symptoms. Denies: Shortness of Breath, Cough, Sputum, Wheezing Cardiovascular: Reports: No Symptoms. Denies: Chest Pain, Palpitations, Dyspnea on Exertion, Edema, Lightheadedness Gastrointestinal: Reports: No Symptoms. Denies: Abdominal Pain, Constipation, Diarrhea, Nausea, Vomiting Genitourinary: Reports: No Symptoms. Denies: Pain Musculoskeletal: Reports: No Symptoms Skin: Reports: No Symptoms Neurological: Reports: Pre-Existing Deficit, Trouble Speaking (chronic ), Difficulty Walking, Weakness, Gait Disturbance. Denies: Dizziness, Headache, Numbness, Seizure, Syncope, Tingling, Change in Speech Psychiatric: Reports: No Symptoms - Patient Data Vitals - Most Recent: Last Vital Signs Temp 97.3 F 11/11/18 00:12 Pulse 71 11/11/18 01:14 Resp 16 11/11/18 00:12 BP 124/68 11/11/18 01:14 Pulse Ox 97 11/11/18 02:27 Weight - Most Recent: 175 lb I&O - Last 24 hours: Intake & Output 11/10/18 11/10/18 11/11/18 14:59 22:59 06:59 Intake Total 300 800 Balance 300 800 Lab Results - Last 24 hrs: Laboratory Results - last 24 hr 11/10/18 11/10/18 11/10/18 Range/Units 05:54 05:54 05:54 WBC 8.58 (3.98-10.04) K/mm3 RBC 4.27 (3.98-5.22) M/mm3 Hgb 11.4 (11.2-15.7) gm/L Hct 38.4 (34.1-44.9) % MCV 89.9 (79.4-94.8) fl MCH 26.7 (25.6-32.2) pg MCHC 29.7 L (32.2-35.5) g/dl RDW Std Deviation 50.9 H (36.4-46.3) fL Plt Count 137 L (182-369) K/mm3 MPV 11.7 (9.4-12.3) fl Neut % (Auto) 80.0 H (34.0-71.1) % Lymph % (Auto) 10.6 L (19.3-51.7) % [place] % (Auto) 8.5 (4.7-12.5) % Eos % (Auto) 0.6 L (0.7-5.8) Baso % (Auto) 0.2 (0.1-1.2) % Neut # (Auto) 6.86 H (1.56-6.13) K/mm3 Lymph # (Auto) 0.91 L (1.18-3.74) K/mm3 [place] # (Auto) 0.73 H (0.24-0.36) K/mm3 Eos # (Auto) 0.05 (0.04-0.36) K/mm3 Baso # (Auto) 0.02 (0.01-0.08) K/mm3 Manual Slide Review Normal smear Sodium 143 (136-145) mEq/L Potassium 3.6 (3.5-5.1) mEq/L Chloride 106 (98-107) mEq/L Carbon Dioxide 31 (21-32) mEq/L Anion Gap 9.6 (5-15) BUN 15 (7-18) mg/dL Creatinine 0.8 (0.55-1.02) mg/dL Est Cr Clr Drug Dosing 52.72 mL/min Estimated GFR (MDRD) > 60 (>60) mL/min BUN/Creatinine Ratio 18.8 H (14-18) Glucose 115 (83-115) mg/dL POC Glucose (83-110) mg/dL Hemoglobin A1c 4.90 (4.50-6.20) % Calcium 8.9 (8.5-10.1) mg/dL Magnesium 1.9 (1.8-2.4) mg/dl Triglycerides 154 H (<150) mg/dL Cholesterol 152 (<200) mg/dL LDL Cholesterol Direct 95 (<100) mg/dL HDL Cholesterol 36.0 L (40-59) mg/dL 11/10/18 11/10/18 11/10/18 Range/Units 10:47 16:44 22:30 WBC (3.98-10.04) K/mm3 RBC (3.98-5.22) M/mm3 Hgb (11.2-15.7) gm/L Hct (34.1-44.9) % MCV (79.4-94.8) fl MCH (25.6-32.2) pg MCHC (32.2-35.5) g/dl RDW Std Deviation (36.4-46.3) fL Plt Count (182-369) K/mm3 MPV (9.4-12.3) fl Neut % (Auto) (34.0-71.1) % Lymph % (Auto) (19.3-51.7) % [place] % (Auto) (4.7-12.5) % Eos % (Auto) (0.7-5.8) Baso % (Auto) (0.1-1.2) % Neut # (Auto) (1.56-6.13) K/mm3 Lymph # (Auto) (1.18-3.74) K/mm3 [place] # (Auto) (0.24-0.36) K/mm3 Eos # (Auto) (0.04-0.36) K/mm3 Baso # (Auto) (0.01-0.08) K/mm3 Manual Slide Review Sodium (136-145) mEq/L Potassium (3.5-5.1) mEq/L Chloride (98-107) mEq/L Carbon Dioxide (21-32) mEq/L Anion Gap (5-15) BUN (7-18) mg/dL Creatinine (0.55-1.02) mg/dL Est Cr Clr Drug Dosing mL/min Estimated GFR (MDRD) (>60) mL/min BUN/Creatinine Ratio (14-18) Glucose (83-115) mg/dL POC Glucose 219 H 128 H 118 H (83-110) mg/dL Hemoglobin A1c (4.50-6.20) % Calcium (8.5-10.1) mg/dL Magnesium (1.8-2.4) mg/dl Triglycerides (<150) mg/dL Cholesterol (<200) mg/dL LDL Cholesterol Direct (<100) mg/dL HDL Cholesterol (40-59) mg/dL 11/11/18 Range/Units 05:55 WBC (3.98-10.04) K/mm3 RBC (3.98-5.22) M/mm3 Hgb (11.2-15.7) gm/L Hct (34.1-44.9) % MCV (79.4-94.8) fl MCH (25.6-32.2) pg MCHC (32.2-35.5) g/dl RDW Std Deviation (36.4-46.3) fL Plt Count (182-369) K/mm3 MPV (9.4-12.3) fl Neut % (Auto) (34.0-71.1) % Lymph % (Auto) (19.3-51.7) % [place] % (Auto) (4.7-12.5) % Eos % (Auto) (0.7-5.8) Baso % (Auto) (0.1-1.2) % Neut # (Auto) (1.56-6.13) K/mm3 Lymph # (Auto) (1.18-3.74) K/mm3 [place] # (Auto) (0.24-0.36) K/mm3 Eos # (Auto) (0.04-0.36) K/mm3 Baso # (Auto) (0.01-0.08) K/mm3 Manual Slide Review Sodium (136-145) mEq/L Potassium (3.5-5.1) mEq/L Chloride (98-107) mEq/L Carbon Dioxide (21-32) mEq/L Anion Gap (5-15) BUN (7-18) mg/dL Creatinine (0.55-1.02) mg/dL Est Cr Clr Drug Dosing mL/min Estimated GFR (MDRD) (>60) mL/min BUN/Creatinine Ratio (14-18) Glucose (83-115) mg/dL POC Glucose 145 H (83-110) mg/dL Hemoglobin A1c (4.50-6.20) % Calcium (8.5-10.1) mg/dL Magnesium (1.8-2.4) mg/dl Triglycerides (<150) mg/dL Cholesterol (<200) mg/dL LDL Cholesterol Direct (<100) mg/dL HDL Cholesterol (40-59) mg/dL Med Orders - Current: Current Medications Acetaminophen (Tylenol) 650 mg PO Q4H PRN PRN Reason: Pain (Mild 1-3)/fever Last Admin: 11/11/18 01:03 Dose: 650 mg Albuterol/Ipratropium (Duoneb 3.0-0.5 Mg/3 Ml) 3 ml NEB Q6HRRT [facility] Last Admin: 11/11/18 02:26 Dose: 3 ml Artificial Tears (Refresh Liquigel 1%) 0 ml EYEBOTH TID [facility] Last Admin: 11/10/18 21:23 Dose: 2 drop Aspirin (Ecotrin) 325 mg PO DAILY [facility] Last Admin: 11/10/18 10:03 Dose: 325 mg Atenolol (Tenormin) 25 mg PO DAILY [facility] Atropine Sulfate (Atropine 1% Ophth Soln) 0 ml SL Q8H PRN PRN Reason: EXCESSIVE DROOLING Budesonide (Pulmicort) 0.5 mg NEB BID [facility] Last Admin: 11/10/18 20:18 Dose: 0.5 mg Calcium Carbonate/Glycine (Tums) 500 mg PO Q4H PRN PRN Reason: Heartburn Chlorhexidine Gluconate (Chlorhexidine Gluconate 0.12% Rinse) 15 ml MM BID [facility] Last Admin: 11/10/18 21:27 Dose: 15 ml Clonazepam (Klonopin) 1 mg PO BID [facility] Last Admin: 11/10/18 21:24 Dose: 1 mg Docusate Sodium (Colace) 100 mg PO BID [facility] Last Admin: 11/10/18 21:24 Dose: 100 mg Donepezil HCl (Aricept) 10 mg PO BID [facility] Last Admin: 11/10/18 21:25 Dose: 10 mg Enoxaparin Sodium (Lovenox) 40 mg SUBCUT Q24H [facility] Last Admin: 11/10/18 13:44 Dose: 40 mg Fenofibrate (Tricor) 145 mg PO BEDTIME [facility] Last Admin: 11/10/18 21:25 Dose: 145 mg Gabapentin (Neurontin) 200 mg PO BID [facility] Last Admin: 11/10/18 21:25 Dose: 200 mg Glimepiride (Amaryl) 1 mg PO DAILY [facility] Haloperidol Lactate (Haldol) 2 mg IVPUSH Q4HR PRN PRN Reason: Anxiety Hydralazine HCl (Apresoline) 10 mg IVPUSH Q6H PRN PRN Reason: Hypertension Hydrocortisone Acetate (Anucort-Hc) 25 mg RECTAL BID PRN PRN Reason: Hemorrhoids Insulin Human Lispro (Humalog) 0 unit SUBCUT QIDACANDBED [facility]; Protocol Last Admin: 11/10/18 17:23 Dose: Not Given Isosorbide Mononitrate (Imdur) 30 mg PO DAILY [facility] Levothyroxine Sodium (Synthroid) 50 mcg PO BEDTIME [facility] Last Admin: 11/10/18 21:25 Dose: 50 mcg Magnesium Oxide (Magnesium Oxide) 400 mg PO DAILY [facility] Metoprolol Tartrate (Lopressor) 5 mg IVPUSH Q4H PRN PRN Reason: Tachycardia Nitroglycerin (Nitrostat) 0.4 mg SL DAILY PRN PRN Reason: Chest Pain Ondansetron HCl (Zofran Odt) 4 mg PO Q6H PRN PRN Reason: nausea, able to take PO Ondansetron HCl (Zofran) 4 mg IV Q6H PRN PRN Reason: Nausea/Vomiting Last Admin: 11/11/18 01:23 Dose: 4 mg Pantoprazole Sodium (Protonix) 40 mg PO DAILY [facility] Paroxetine HCl (Paxil) 40 mg PO BEDTIME [facility] Last Admin: 11/10/18 21:26 Dose: 40 mg Paliperdone 6 Mg (Tablet Ptom) 0 each PO DAILY [facility] Last Admin: 11/10/18 10:03 Dose: 1 each Mirabegron 25 Mg (Ptom) 0 each PO BEDTIME [facility] Last Admin: 11/10/18 21:28 Dose: Not Given Potassium Chloride (Klor-Con M20) 20 meq PO BID [facility] Last Admin: 11/10/18 21:26 Dose: 20 meq Simvastatin (Zocor) 10 mg PO DAILY [facility] Sodium Chloride (Saline Flush) 10 ml FLUSH ASDIRECTED PRN PRN Reason: Keep Vein Open Last Admin: 11/09/18 07:04 Dose: 10 ml Discontinued Medications Albuterol/Ipratropium (Duoneb 3.0-0.5 Mg/3 Ml) 3 ml NEB Q6HR [facility] Barium Sulfate (E-Z-Paste) 454 gm PO ONETIME ONE Stop: 11/10/18 08:31 Last Admin: 11/10/18 08:30 Dose: 50 gm Barium Sulfate (Liquid E-Z Paque) 355 ml PO PREPRO ONE Stop: 11/10/18 08:31 Last Admin: 11/10/18 08:30 Dose: 60 ml Budesonide (Pulmicort) 0.5 mg NEB BIDRT [facility] Dextrose/Sodium Chloride (Dextrose 5%-Normal Saline) 1,000 mls @ 50 mls/hr IV ASDIRECTED KATHLEEN Last Admin: 11/09/18 15:25 Dose: 50 mls/hr Metoprolol Tartrate (Lopressor) 5 mg IVPUSH ONETIME ONE Stop: 11/09/18 11:54 Last Admin: 11/09/18 12:01 Dose: 5 mg Miscellaneous Information (Remove Patch) 1 ea TRDERM DAILY@1800 [facility] Nitroglycerin (Nitro-Dur 0.2 Mg/Hr) 0.2 mg TRDERM DAILY@0600 [facility] Last Admin: 11/10/18 06:43 Dose: Not Given Non-Formulary Medication (Paliperidone [Paliperidone Er]) 6 mg PO DAILY KATHLEEN - Exam Quality Assessment: Reports: DVT Prophylaxis General: Reports: Alert, Oriented, Cooperative, No Acute Distress HEENT: Reports: Pupils Equal, Pupils Reactive, EOMI, Mucous Membr. Moist/[place] Neck: Reports: Supple, Trachea Midline, No JVD Lungs: Reports: Clear to Auscultation, Normal Respiratory Effort Cardiovascular: Reports: Regular Rate, Regular Rhythm GI/Abdominal Exam: Normal Bowel Sounds, Soft, Non-Tender, No Distention, No Abnormal Bruit (Female) Exam: Deferred Rectal (Female) Exam: Deferred Extremities: Normal Inspection, Non-Tender, No Pedal Edema, Normal Capillary Refill, Limited Range of Motion (Unable to move left arm or leg - sensation intact ) Skin: Reports: Warm, Dry, Intact Neurological: Reports: No New Focal Deficit, Sensation Intact. Denies: Normal Gait, Normal Speech, Strength Equal Bilateral (hemiparesis on left side ) Psy/Mental Status: Reports: Alert. Denies: Agitated
[2018-11-11] MEDS: Insulin Lispro 100 UNIT/ML 10 ML VIAL SUBCUT SCH ×2 (07:31→11:48)
[2018-11-11] MEDS: Budesonide 0.5 MG/2 ML Neb Susp NEB SCH (08:16)
--- NOTE | 2018-11-11 08:44 | CR ---
RSVP Rehabilitative swallowing video procedure was performed in conjunction with the speech pathologist. Mild residual is seen within the vallecula. No aspiration was observed. For further details, please see the speech pathologist's note. Impression: 1. Findings as noted above. Diagnostic code #2
[2018-11-11] MEDS ORDERED: Pantoprazole 40 MG Tab.CR PO SCH (09:00)
[2018-11-11] MEDS ORDERED: Isosorbide Mononitrate 30 MG Tab.ER PO SCH (09:00)
[2018-11-11] MEDS ORDERED: Glimepiride 2 MG Tab PO SCH (09:00)
[2018-11-11] MEDS ORDERED: Simvastatin 10 MG Tab PO SCH (09:00)
[2018-11-11] MEDS ORDERED: Atenolol 25 MG Tab PO SCH (09:00)
[2018-11-11] MEDS ORDERED: Magnesium Oxide 400 MG Tab PO SCH (09:00)
[2018-11-11] MEDS: ClonazePAM 1 MG Tab PO SCH (10:03)
[2018-11-11] MEDS: Potassium Chloride 20 MEQ Tab.ER PO SCH (10:04)
[2018-11-11] MEDS: Donepezil 10 MG Tab PO SCH (10:04)
[2018-11-11] MEDS: Aspirin 325 MG Tab.EC PO SCH (10:04)
[2018-11-11] MEDS: Docusate Sodium 100 MG Cap PO SCH (10:05)
[2018-11-11] MEDS: Gabapentin 100 MG Cap PO SCH (10:05)
[2018-11-11] MEDS: PALIPERIDONE 6 MG PO SCH (10:06)
[2018-11-11] MEDS: Chlorhexidine Gluconate 0.12% Oral Rinse 118 ML Bottle MM SCH (10:06)
[2018-11-11] MEDS: Carboxymethylcellulose Sodium 1% Ophth Gel 15 ML Bottle EYEBOTH SCH (10:10)
[2018-11-11] MEDS: Enoxaparin 40 MG/0.4 ML Syringe SUBCUT SCH (11:47)
[2018-11-11 12:00] VITALS: BP 122/94
== END 2018-11-11 14:30 | DRG 65 ==
LOC: JD.ED 06:44 → JD.MS 12:11
PROVIDERS: ADMIT Internal Medicine Cardiovascular Disease; ATTEND Internal Medicine Cardiovascular Disease
DX: I63.9 Cerebral infarction, unspecified (principal); I63.131 Cerebral infarction due to embolism of right carotid artery; R29.810 Facial weakness; R47.1 Dysarthria and anarthria; G81.94 Hemiplegia, unspecified affecting left nondominant side; I10 Essential (primary) hypertension; I25.10 Atherosclerotic heart disease of native coronary artery without angina pectoris; J44.9 Chronic obstructive pulmonary disease, unspecified; K59.09 Other constipation; K21.9 Gastro-esophageal reflux disease without esophagitis; R32 Unspecified urinary incontinence; N32.81 Overactive bladder; M54.9 Dorsalgia, unspecified; G89.29 Other chronic pain; M19.90 Unspecified osteoarthritis, unspecified site; G24.01 Drug induced subacute dyskinesia; T50.905A Adverse effect of unspecified drugs, medicaments and biological substances, initial encounter; F41.9 Anxiety disorder, unspecified; F32.9 Major depressive disorder, single episode, unspecified; F03.90 Unspecified dementia, unspecified severity, without behavioral disturbance, psychotic disturbance, mood disturbance, and anxiety; H54.7 Unspecified visual loss; H04.129 Dry eye syndrome of unspecified lacrimal gland; E11.42 Type 2 diabetes mellitus with diabetic polyneuropathy; Z86.73 Personal history of transient ischemic attack (TIA), and cerebral infarction without residual deficits; I69.322 Dysarthria following cerebral infarction; I69.392 Facial weakness following cerebral infarction; E78.5 Hyperlipidemia, unspecified; M81.0 Age-related osteoporosis without current pathological fracture; E53.8 Deficiency of other specified B group vitamins; Z88.8 Allergy status to other drugs, medicaments and biological substances; R53.1 Weakness; R06.02 Shortness of breath; R05 Cough; Z79.899 Other long term (current) drug therapy; Z79.02 Long term (current) use of antithrombotics/antiplatelets; Z79.84 Long term (current) use of oral hypoglycemic drugs; Z99.81 Dependence on supplemental oxygen; Z66 Do not resuscitate; Z79.82 Long term (current) use of aspirin
CPT/HCPCS: 36415; 70450; 70551; 80053; 82962; 85025; 85610; 93005; 96374; 99285; J3490; 74230; 74230-26; 80048; 80061; 83036; 83735; 92610-GN; 92611-GN; 93010; 94640; 94760; 94761; 97110-GP; 97112-GO; 97112-GP; 97162-GP; 97167-GO; 97530-GO; 97530-GP; 99284; A9270-GY; J1650; J1815-GY; J2405; J7042; J7620-GY